=== PATIENT | male | born 1955 | race Caucasian/White ===

== ENCOUNTER 2019-07-07 14:50 | Emergency (ER) | payer OTHER ==
[2019-07-07 15:47] LABS: Protime INR 0.96
--- NOTE | 2019-07-07 15:48 | RAD REPORT ---
EXAM DESCRIPTION: RAD - Chest Single View - 07/07/2019 3:41 pm CLINICAL HISTORY: CHEST PAIN Chest pain. COMPARISON: No comparisons FINDINGS: Portable technique limits examination quality. The lungs are grossly clear. The heart is normal in size. No displaced fractures. IMPRESSION: No acute intrathoracic process suspected.
[2019-07-07 15:50] LABS: Absolute Lymphocytes (CBC) 1.4 K/uL (0.7-4.9); Basophils % 1.1 % (0-1.3); Hematocrit 44.9 % (39.6-49.0); Lymphocytes % 26.5 % (15.3-44.8); MPV 8.6 fL (7.6-11.3); RBC Red Blood Cell Count 5.31 M/uL (4.33-5.43)
[2019-07-07 15:57] LABS: ALT/SGPT 30 U/L (12-78); AST/SGOT 20 U/L (15-37); Albumin 3.7 g/dL (3.4-5.0); Alkaline Phosphatase 76 U/L (45-117); BUN Blood Urea Nitrogen 17 mg/dL (7-18); Bicarbonate 26 mmol/L (21-32); Bilirubin Direct 0.1 mg/dL (0-0.2); Bilirubin Total 0.4 mg/dL (0.2-1.0); Glucose Level 116 mg/dL (74-106); Lipase 140 U/L (73-393); Magnesium 2.3 mg/dL (1.8-2.4); NT PRO-BNP 14 pg/mL (<125); Potassium 4.6 mmol/L (3.5-5.1); Protein, Total 6.8 g/dL (6.4-8.2); Sodium Level 138 mmol/L (136-145); Troponin (Emerg Dept Use Only) < 0.02 ng/mL (0.0-0.045)
--- NOTE | 2019-07-07 17:10 | RAD REPORT ---
EXAM DESCRIPTION: US - Abdomen Exam Limited - 07/07/2019 5:01 pm CLINICAL HISTORY: chest pain COMPARISON: <Comparisons> FINDINGS: The gallbladder is contracted and therefore incompletely evaluated. No gross calculus seen . The common bile duct is normal measuring 4 mm. The liver demonstrates no findings of intrahepatic biliary dilatation. IMPRESSION: Contracted gallbladder.
--- NOTE | 2019-07-07 17:38 | EKG ---
Test Date: 2019-07-07 Test Time: 15:13:38 Principal Technical Writer: RV MEASUREMENT RESULTS: Intervals: Rate: 57 VT: 196 QRSD: 80 QT: 392 QTc: 381 [place]: P: 49 VT: 196 QRS: 72 T: 58 INTERPRETIVE STATEMENTS: Sinus bradycardia with sinus arrhythmia RSR' or QR pattern in V1 suggests right ventricular conduction delay Borderline ECG Compared to ECG 12/26/2006 04:31:31 No significant changes Electronically Signed On 07-07-19 17:37:50 CDT by Ricky Logan
--- NOTE | 2019-07-07 19:06 | ER ---
Nurse's Notes [facility] Name: Ramez Boothe Age: 63 yrs Sex: Male : 1955 Arrival Date: 07/07/2019 Time: 14:50 Bed 28 Private MD: Diagnosis: Angina pectoris, unspecified Presentation: 07/07 14:56 Presenting complaint: Patient states: Left sided chest pain that started last night and aj1 got worse today. Reports that he took some antiacid's with no relief. Reports SOB. Denies nausea, palpitations. Transition of care: patient was not received from another setting of care. Onset of symptoms was July 06, 2019. Risk Assessment: Do you want to hurt yourself or someone else? Patient reports no desire to harm self or others. Initial Sepsis Screen: Does the patient meet any 2 criteria? No. Patient's initial sepsis screen is negative. Does the patient have a suspected source of infection? No. Patient's initial sepsis screen is negative. Care prior to arrival: None. 14:56 Method Of Arrival: Ambulatory aj 14:56 Acuity: MARGARET 3 aj1 Triage Assessment: 14:59 General: Appears in no apparent distress. comfortable, Behavior is calm, cooperative, aj1 appropriate for age. Pain: Complains of pain in left lateral anterior chest Pain currently is 5 out of 10 on a pain scale. Neuro: Level of Consciousness is awake, alert, obeys commands. Cardiovascular: Patient's skin is warm and dry. Respiratory: Airway is patent Respiratory effort is even, unlabored, Respiratory pattern is regular, symmetrical. Historical: - Allergies: 14:59 No Known Allergies; aj1 - Home Meds: 14:59 Plavix Oral [Active]; Aspirin Oral [Active]; Lisinopril Oral [Active]; atorvastatin aj1 oral oral [Active]; Metoprolol Tartrate Oral [Active]; - PMHx: 14:59 Hyperlipidemia; Hypertension; Myocardial infarction; cardiac stent; aj1 - Immunization history:: Flu vaccine is up to date. - Social history:: Smoking status: Patient/guardian denies using tobacco. - Ebola Screening: : Patient denies travel to an Ebola-affected area in the 21 days before illness onset. Screenin:52 Abuse screen: Denies threats or abuse. Denies injuries from another. Nutritional rv screening: No deficits noted. Tuberculosis screening: No symptoms or risk factors identified. Fall Risk None identified. Assessment: 15:50 General: Appears in no apparent distress. uncomfortable, Behavior is calm, cooperative. rv Pain: Complains of pain in left lateral anterior chest Pain does not radiate. Pain began suddenly. Neuro: Level of Consciousness is awake, alert, obeys commands, Oriented to person, place, time, situation. Cardiovascular: Patient's skin is warm and dry. Rhythm is sinus rhythm. Respiratory: Airway is patent. GI: No signs and/or symptoms were reported involving the gastrointestinal system. : No signs and/or symptoms were reported regarding the genitourinary system. EENT: No signs and/or symptoms were reported regarding the EENT system. Derm: Skin is intact. 16:21 Reassessment: ultrasound done at the bedside. awaiting result. rv Vital Signs: 14:59 BP 130 / 74; Pulse 65; Resp 18; Temp 98.5; Pulse Ox 96% on R/A; Weight 88.45 kg (R); aj1 Height 5 ft. 4 in. (162.56 cm) (R); Pain 5/10; 15:45 BP 118 / 64; Pulse 49; Resp 13; Pulse Ox 96% on 2 lpm NC; rv 15:55 Pulse Ox 93% on R/A; rv 17:30 BP 108 / 61; Pulse 49; Resp 15; Pulse Ox 97% ; rv 18:00 BP 126 / 64; Pulse 55; Resp 16; Pulse Ox 98% on R/A; rv 19:17 BP 121 / 61; Pulse 54; Resp 14; Pulse Ox 98% on R/A; rv 14:59 Body Mass Index 33.47 (88.45 kg, 162.56 cm) aj1 15:55 patient is a mouth breather during sleep. rv ED Course: 14:50 Patient arrived in ED. as 14:57 Triage completed. aj1 14:59 Arm band placed on Patient placed in an exam room. aj1 15:05 Amparo Webster FNP-C is PHCP. snw 15:05 Sabino Chi MD is Attending Physician. snw 15:25 Arthur Watkins RN is Primary Nurse. rv 15:30 Inserted saline lock: 22 gauge in left forearm, using aseptic technique. Blood rv collected. 15:30 Initial lab(s) drawn, by me, sent to lab. Patient maintains SpO2 saturation greater rv than 95% on room air. 15:41 XRAY Chest (1 view) In Process Unspecified. EDMS 15:52 Patient has correct armband on for positive identification. Placed in gown. Bed in low rv position. Call light in reach. Adult w/ patient. groundwater monitoring technician on. Pulse ox on. NIBP on. 17:02 US Abdomen Limited In Process Unspecified. EDMS 17:07 Ultrasound completed. Patient tolerated well. Notified ELECTRON BEAM MACHINE WELDER SETTER/YONATAN stoddard. sg3 19:17 No provider procedures requiring assistance completed. IV discontinued, intact, rv bleeding controlled, No redness/swelling at site. Pressure dressing applied. Administered Medications: 17:00 Drug: NS 0.9% 500 ml Route: IV; Rate: bolus; Site: left forearm; rv 19:17 Follow up: IV Status: Completed infusion; IV Intake: 500ml rv Intake: 19:17 IV: 500ml; Total: 500ml. rv Outcome: 19:04 Discharge ordered by . snw 19:19 Discharged to home ambulatory. rv 19:19 Condition: improved 19:19 Discharge instructions given to patient, Instructed on discharge instructions, follow up and referral plans. Demonstrated understanding of instructions, follow-up care. 19:19 Patient left the ED. rv Signatures: Dispatcher [employer] EDAnita Dougherty, RN RN aj1 Amparo Webster, STATEMENT PROCESSOR-C STATEMENT PROCESSOR-Juan Miguelw Johnna Ames Sarah sg3 Arthur Watkisn RN RN rv Corrections: (The following items were deleted from the chart) 15:56 15:45 BP 118 / 64; Pulse 49bpm; Resp 13bpm; Pulse Ox 96% RA; rv rv
--- NOTE | 2019-07-07 19:07 | EDPHYS ---
Physician Documentation [facility] Name: Ramez Boothe Age: 63 yrs Sex: Male : 1955 Arrival Date: 07/07/2019 Time: 14:50 Bed 28 Private MD: ED Physician Sabino Chi HPI: 07/07 18:32 This 63 yrs old Male presents to ER via Ambulatory with complaints of Chest snw Pain. 18:32 The patient or guardian reports chest pain that is located primarily in the left snw lateral anterior chest and left breast. Onset: gradually, last night, and became persistent. The pain does not radiate. Associated signs and symptoms: The patient has no apparent associated signs or symptoms. The chest pain is described as a pressure. Duration: The patient or guardian reports a single episode. Modifying factors: The symptoms are alleviated by nothing. the symptoms are aggravated by nothing. Severity of pain: At its worst the pain was very mild mild. The patient has not experienced similar symptoms in the past. It is unknown whether or not the patient has recently seen a physician. Historical: - Allergies: 14:59 No Known Allergies; aj1 - Home Meds: 14:59 Plavix Oral [Active]; Aspirin Oral [Active]; Lisinopril Oral [Active]; atorvastatin aj1 oral oral [Active]; Metoprolol Tartrate Oral [Active]; - PMHx: 14:59 Hyperlipidemia; Hypertension; Myocardial infarction; cardiac stent; aj1 - Immunization history:: Flu vaccine is up to date. - Social history:: Smoking status: Patient/guardian denies using tobacco. - Ebola Screening: : Patient denies travel to an Ebola-affected area in the 21 days before illness onset. ROS: 18:30 Constitutional: Negative for fever, chills, and weight loss, Eyes: Negative for injury, snw pain, redness, and discharge, ENT: Negative for injury, pain, and discharge, Neck: Negative for injury, pain, and swelling, Respiratory: Negative for shortness of breath, cough, wheezing, and pleuritic chest pain, Abdomen/GI: Negative for abdominal pain, nausea, vomiting, diarrhea, and constipation, Back: Negative for injury and pain, : Negative for injury, bleeding, discharge, and swelling, MS/Extremity: Negative for injury and deformity, Skin: Negative for injury, rash, and discoloration, Neuro: Negative for headache, weakness, numbness, tingling, and seizure, Psych: Negative for depression, anxiety, suicide ideation, homicidal ideation, and hallucinations. 18:30 Cardiovascular: Positive for chest pain, of the left lateral anterior chest, Negative for edema, orthopnea, palpitations, paroxysmal nocturnal dyspnea, acute changes. Exam: 18:30 Constitutional: This is a well developed, well nourished patient who is awake, alert, snw and in no acute distress. Head/Face: Normocephalic, atraumatic. Eyes: Pupils equal round and reactive to light, extra-ocular motions intact. Lids and lashes normal. Conjunctiva and sclera are non-icteric and not injected. Cornea within normal limits. Periorbital areas with no swelling, redness, or edema. ENT: Nares patent. No nasal discharge, no septal abnormalities noted. Tympanic membranes are normal and external auditory canals are clear. Oropharynx with no redness, swelling, or masses, exudates, or evidence of obstruction, uvula midline. Mucous membranes moist. Neck: Trachea midline, no thyromegaly or masses palpated, and no cervical lymphadenopathy. Supple, full range of motion without nuchal rigidity, or vertebral point tenderness. No Meningismus. Cardiovascular: Regular rate and rhythm with a normal S1 and S2. No gallops, murmurs, or rubs. Normal PMI, no JVD. No pulse deficits. Respiratory: Lungs have equal breath sounds bilaterally, clear to auscultation and percussion. No rales, rhonchi or wheezes noted. No increased work of breathing, no retractions or nasal flaring. Abdomen/GI: Soft, non-tender, with normal bowel sounds. No distension or tympany. No guarding or rebound. No evidence of tenderness throughout. Back: No spinal tenderness. No costovertebral tenderness. Full range of motion. Skin: Warm, dry with normal turgor. Normal color with no rashes, no lesions, and no evidence of cellulitis. MS/ Extremity: Pulses equal, no cyanosis. Neurovascular intact. Full, normal range of motion. Neuro: Awake and alert, GCS 15, oriented to person, place, time, and situation. Cranial nerves II-XII grossly intact. Motor strength 5/5 in all extremities. Sensory grossly intact. Cerebellar exam normal. Normal gait. Psych: Awake, alert, with orientation to person, place and time. Behavior, mood, and affect are within normal limits. 18:30 Chest/axilla: Inspection: normal, Palpation: is normal, Axilla: are normal, Lymph nodes: lymphadenopathy is not appreciated. Vital Signs: 14:59 BP 130 / 74; Pulse 65; Resp 18; Temp 98.5; Pulse Ox 96% on R/A; Weight 88.45 kg (R); aj1 Height 5 ft. 4 in. (162.56 cm) (R); Pain 5/10; 15:45 BP 118 / 64; Pulse 49; Resp 13; Pulse Ox 96% on 2 lpm NC; rv 15:55 Pulse Ox 93% on R/A; rv 17:30 BP 108 / 61; Pulse 49; Resp 15; Pulse Ox 97% ; rv 18:00 BP 126 / 64; Pulse 55; Resp 16; Pulse Ox 98% on R/A; rv 19:17 BP 121 / 61; Pulse 54; Resp 14; Pulse Ox 98% on R/A; rv 14:59 Body Mass Index 33.47 (88.45 kg, 162.56 cm) aj1 15:55 patient is a mouth breather during sleep. rv MDM: 15:05 Patient medically screened. snw 22:50 The patient was not given aspirin in the Emergency Department. Patient reports taking snw aspirin within the past 24 hours. Data reviewed: vital signs, nurses notes. Data interpreted: Pulse oximetry: on room air is 98 %. Interpretation: normal. Counseling: I had a detailed discussion with the patient and/or guardian regarding: the historical points, exam findings, and any diagnostic results supporting the discharge/admit diagnosis, lab results, radiology results, the need for outpatient follow up, to return to the emergency department if symptoms worsen or persist or if there are any questions or concerns that arise at home. Response to treatment: the patient's symptoms have mildly improved after treatment. Special discussion: Based on the patient's history, exam, and Dx evaluation, there is no indication for emergent intervention or inpatient Tx. It is understood by the patient/guardian that if the Sx's persist or worsen they need to return immediately for re-evaluation. Based on the history and exam findings, there is no indication for further emergent testing or inpatient evaluation. I discussed with the patient/guardian the need to see the financial institution president for further evaluation of the symptoms. I discussed with the patient/guardian the need to see the primary care provider for further evaluation of the symptoms. 07/07 15:23 Order name: Basic Metabolic Panel; Complete Time: 16:40 snw 07/07 15:23 Order name: CBC with Diff; Complete Time: 16:40 snw 07/07 15:23 Order name: LFT's; Complete Time: 16:40 snw 07/07 15:23 Order name: Magnesium; Complete Time: 16:40 snw 07/07 15:23 Order name: NT PRO-BNP; Complete Time: 16:40 snw 07/07 15:23 Order name: PT-INR; Complete Time: 15:49 snw 07/07 15:23 Order name: Troponin (emerg Dept Use Only); Complete Time: 16:40 snw 07/07 15:23 Order name: XRAY Chest (1 view); Complete Time: 15:50 snw 07/07 15:23 Order name: EKG; Complete Time: 15:24 snw 07/07 15:23 Order name: Lipase; Complete Time: 16:40 snw 07/07 15:23 Order name: US Abdomen Limited; Complete Time: 17:14 snw 07/07 17:53 Order name: Troponin (emerg Dept Use Only); Complete Time: 19:02 snw 07/07 15:23 Order name: Cardiac monitoring; Complete Time: 15:26 snw 07/07 15:23 Order name: EKG - Nurse/Tech; Complete Time: 15:26 snw 07/07 15:23 Order name: IV Saline Lock; Complete Time: 15:26 snw 07/07 15:23 Order name: Labs collected and sent; Complete Time: 15:26 snw 07/07 15:23 Order name: O2 Per Protocol; Complete Time: 15:26 w 07/07 15:23 Order name: O2 Sat Monitoring; Complete Time: 15:26 snw Administered Medications: 17:00 Drug: NS 0.9% 500 ml Route: IV; Rate: bolus; Site: left forearm; rv 19:17 Follow up: IV Status: Completed infusion; IV Intake: 500ml rv Disposition: 07/08 07:10 Co-signature as Attending Physician, Sabino Chi MD. rn Disposition: 07/07/19 19:04 Discharged to Home. Impression: Angina pectoris, unspecified. - Condition is Stable. - Discharge Instructions: Angina Pectoris. - Work release form, Medication Reconciliation Form, Thank You Letter, Antibiotic Education, Prescription Opioid Use form. - Follow up: Private Physician; When: 1 - 2 days; Reason: Recheck today's complaints, Continuance of care, Re-evaluation by your physician. Follow up: Emergency Department; When: As needed; Reason: Worsening of condition. Signatures: Dispatcher [employer] EDMS Anita Carty RN RN aj1 Amparo Webster, MEDICAL TECHNOLOGIST-C MEDICAL TECHNOLOGIST-Csnw Sabino Chi MD MD rn Vicente, Ronaldo, RN RN rv Corrections: (The following items were deleted from the chart) 07/07 19:19 19:04 07/07/2019 19:04 Discharged to Home. Impression: Angina pectoris, unspecified. rv Condition is Stable. Forms are Medication Reconciliation Form, Thank You Letter, Antibiotic Education, Prescription Opioid Use. Follow up: Private Physician; When: 1 - 2 days; Reason: Recheck today's complaints, Continuance of care, Re-evaluation by your physician. Follow up: Emergency Department; When: As needed; Reason: Worsening of condition. snw
[2019-07-07 23:59] VITALS: TEMP 98.5
[2019-07-08 00:56] VITALS: O2SAT 98
[2019-07-08 00:57] VITALS: BP 121/61
== END 2019-07-07 19:19 | disposition home or self-care (01) ==
LOC: ER 14:50
DX: I20.9 Angina pectoris, unspecified (principal); I10 Essential (primary) hypertension; I25.2 Old myocardial infarction; E78.5 Hyperlipidemia, unspecified; Z79.01 Long term (current) use of anticoagulants; Z79.82 Long term (current) use of aspirin; Z95.818 Presence of other cardiac implants and grafts
CPT/HCPCS: 36415; 71045; 76705; 80048; 80076; 83690; 83735; 83880; 84484; 85025; 85610; 93005; 96360; 96361; 99285

== ENCOUNTER 2021-08-21 21:23 | Emergency (ER) | payer OTHER ==
--- NOTE | 2021-08-21 21:57 | ER ---
Nurse's Notes [facility] Name: Ramez Boothe Age: 65 yrs Sex: Male : 1955 Arrival Date: 08/21/2021 Time: 21:29 Bed 13 Private MD: Diagnosis: Pain in left forearm Presentation: 08/21 21:42 Chief complaint: Patient states: was lifting an air conditioner and hurt left arm. em Coronavirus screen: Vaccine status: Patient reports receiving the 2nd dose of the covid vaccine. Ebola Screen: Patient negative for fever greater than or equal to 101.5 degrees Fahrenheit, and additional compatible Ebola Virus Disease symptoms Patient denies exposure to infectious person. Patient denies travel to an Ebola-affected area in the 21 days before illness onset. No symptoms or risks identified at this time. Initial Sepsis Screen: Does the patient meet any 2 criteria? No. Patient's initial sepsis screen is negative. Does the patient have a suspected source of infection? No. Patient's initial sepsis screen is negative. Risk Assessment: Do you want to hurt yourself or someone else? Patient reports no desire to harm self or others. Onset of symptoms was August 21, 2021. 21:42 Method Of Arrival: Ambulatory em 21:42 Acuity: MARGARET 3 em Triage Assessment: 22:03 General: Appears in no apparent distress. Behavior is calm, cooperative. Pain: df1 Complains of pain in left arm Pain at worst was 10 out of 10 on a pain scale. Aggravated by increased activity. Historical: - Allergies: 21:45 No Known Allergies; em - Home Meds: 22:04 Aspirin Oral [Active]; atorvastatin Oral [Active]; lisinopril Oral [Active]; Metoprolol df1 Tartrate Oral [Active]; Plavix Oral [Active]; - PMHx: 21:45 cardiac stent; Hyperlipidemia; Hypertension; Myocardial infarction; em - PSHx: 22:04 None; df1 - Immunization history:: Adult Immunizations up to date. - Social history:: Smoking status: Patient denies any tobacco usage or history of. Screenin:03 Abuse screen: Denies threats or abuse. Nutritional screening: No deficits noted. df1 Tuberculosis screening: No symptoms or risk factors identified. Fall Risk None identified. Assessment: 22:26 General: Appears in no apparent distress. Behavior is calm, cooperative. Pain: df1 Complains of pain in anterior aspect of left shoulder and posterior aspect of left shoulder Aggravated by increased activity. Vital Signs: 21:42 BP 136 / 68; Pulse 72; Resp 18; Temp 98.4; Pulse Ox 97% on R/A; Weight 99.79 kg; Height em 5 ft. 4 in. (162.56 cm); 22:27 BP 140 / 65; Pulse 75; Resp 18; Pulse Ox 98% on R/A; Pain 8/10; df1 21:42 Body Mass Index 37.76 (99.79 kg, 162.56 cm) em ED Course: 21:29 Patient arrived in ED. cf2 21:44 Triage completed. em 21:45 Thuy Scherer FNP-C is [facility]. kb 21:45 Simón Jacobsen MD is Attending Physician. kb 21:45 Arm band placed on. em 21:54 Dontrell Hopkins, RN is Primary Nurse. fu 22:04 Patient has correct armband on for positive identification. Bed in low position. Call df1 light in reach. Side rails up X 1. 22:04 No provider procedures requiring assistance completed. Patient did not have IV access df1 during this emergency room visit. 22:26 Sling applied to left arm. df1 Administered Medications: No medications were administered Outcome: 21:56 Discharge ordered by . kb 22:05 Discharged to home ambulatory. df1 22:05 Condition: stable 22:06 Discharge instructions given to patient, Instructed on discharge instructions, follow df1 up and referral plans. medication usage, Demonstrated understanding of instructions, follow-up care, medications, Prescriptions given X 2. 22:28 Patient left the ED. df1 Signatures: Thuy Scherer FNP-C FNP-Ckb Munoz, Edgar RN RN Dontrell Hopkins, Swapnil Delacruz RN 2 Brina Garcia df1
--- NOTE | 2021-08-21 21:58 | EDPHYS ---
Physician Documentation [facility] Name: Ramez Boothe Age: 65 yrs Sex: Male : 1955 Arrival Date: 08/21/2021 Time: 21:29 Bed 13 Private MD: ED Physician Simón Jacobsen HPI: 08/21 21:53 This 65 yrs old Male presents to ER via Ambulatory with complaints of Arm kb Pain, LIMITED MOBILITY IN ARM, ARM CRAMPS. 21:53 The patient or guardian complains of pain, that is acute. The complaints affect the kb left forearm. Context: The problem was sustained at home, resulted from lifting or pulling. Onset: The symptoms/episode began/occurred today. Treatment prior to arrival includes: no previous treatment. Modifying factors: The symptoms are alleviated by nothing. the symptoms are aggravated by movement. Associated signs and symptoms: Pertinent positives: decreased range of motion, pain. Severity of symptoms: At their worst the symptoms were moderate, in the emergency department the symptoms are unchanged. The patient has not experienced similar symptoms in the past. The patient has not recently seen a physician. Pt states he was lifting something heavy today and felt some pain in left forearm. States only has pain when he tries to rotate arm. Full flexion and extension without pain. . Historical: - Allergies: 21:45 No Known Allergies; em - Home Meds: 22:04 Aspirin Oral [Active]; atorvastatin Oral [Active]; lisinopril Oral [Active]; Metoprolol df1 Tartrate Oral [Active]; Plavix Oral [Active]; - PMHx: 21:45 cardiac stent; Hyperlipidemia; Hypertension; Myocardial infarction; em - PSHx: 22:04 None; df1 - Immunization history:: Adult Immunizations up to date. - Social history:: Smoking status: Patient denies any tobacco usage or history of. ROS: 21:55 Constitutional: Negative for fever, chills, and weight loss. kb 21:55 MS/extremity: Positive for decreased range of motion, pain, of the left forearm. 21:55 All other systems are negative. Exam: 21:56 Constitutional: This is a well developed, well nourished patient who is awake, alert, kb and in no acute distress. Head/Face: Normocephalic, atraumatic. ENT: Moist Mucous membranes Respiratory: Respirations even and unlabored. No increased work of breathing, no retractions or nasal flaring. Skin: Warm, dry with normal turgor. Normal color. Neuro: Awake and alert, GCS 15, oriented to person, place, time, and situation. Moves all extremities. Normal gait. Psych: Awake, alert, with orientation to person, place and time. Behavior, mood, and affect are within normal limits. 21:56 Musculoskeletal/extremity: Extremities: grossly normal except: noted in the left forearm: decreased ROM, pain, ROM: limited active range of motion, in the left forearm, rotation only, full rom with extension and flexion., Circulation is intact in all extremities. Sensation intact. Vital Signs: 21:42 BP 136 / 68; Pulse 72; Resp 18; Temp 98.4; Pulse Ox 97% on R/A; Weight 99.79 kg; Height em 5 ft. 4 in. (162.56 cm); 22:27 BP 140 / 65; Pulse 75; Resp 18; Pulse Ox 98% on R/A; Pain 8/10; df1 21:42 Body Mass Index 37.76 (99.79 kg, 162.56 cm) em MDM: 21:45 Patient medically screened. kb 21:53 Data reviewed: vital signs, nurses notes. Data interpreted: Pulse oximetry: on room air kb is 97 %. Interpretation: normal. Counseling: I had a detailed discussion with the patient and/or guardian regarding: the historical points, exam findings, and any diagnostic results supporting the discharge/admit diagnosis, the need for outpatient follow up, a orthopedic surgeon, to return to the emergency department if symptoms worsen or persist or if there are any questions or concerns that arise at home. 08/21 21:57 Order name: Sling; Complete Time: 22:41 kb Administered Medications: No medications were administered Disposition: 08/22 07:35 Co-signature as Attending Physician, Simón Jacobsen MD. [email or web address] Disposition Summary: 08/21/21 21:56 Discharge Ordered Location: Home kb Condition: Stable kb Diagnosis - Pain in left forearm kb Followup: kb - With: Emergency Department - When: As needed - Reason: Worsening of condition Followup: kb - With: Private Physician - When: 2 - 3 days - Reason: Recheck today's complaints, Continuance of care, Re-evaluation by your physician Discharge Instructions: - Discharge Summary Sheet kb - Musculoskeletal Pain kb Forms: - Medication Reconciliation Form kb - Thank You Letter kb - Antibiotic Education kb - Prescription Opioid Use kb Prescriptions: - Cyclobenzaprine 10 mg Oral Tablet - take 1 tablet by ORAL route every 8 hours As needed; 21 tablet; Refills: 0, kb Product Selection Permitted - Diclofenac Sodium 75 mg Oral tablet,delayed release (DR/EC) - take 1 tablet by ORAL route 2 times per day As needed; 30 tablet; Refills: 0, kb Product Selection Permitted Signatures: Thuy Scherer FNP-C FNP-Michael Parker RN RN Simón Navarro MD MD [facility] Brina Garcia df1
[2021-08-21 22:34] VITALS: TEMP 98.4
[2021-08-21 22:35] VITALS: BP 140/65; O2SAT 98
== END 2021-08-21 22:28 | disposition home or self-care (01) ==
LOC: ER 21:23
DX: M79.632 Pain in left forearm (principal); X50.0XXA Overexertion from strenuous movement or load, initial encounter; Y93.89 Activity, other specified; Y92.9 Unspecified place or not applicable; I10 Essential (primary) hypertension; E78.00 Pure hypercholesterolemia, unspecified; I25.2 Old myocardial infarction
CPT/HCPCS: 99283

== ENCOUNTER 2022-06-02 07:45 | Day surgery (SDC) | payer OTHER ==
--- NOTE | 2022-06-01 13:11 | RAD REPORT ---
EXAM DESCRIPTION: Alexis Garcia (2 Views)06/01/2022 1:05 pm CLINICAL HISTORY: Preop for left hand surgery. Hypertension COMPARISON: 2019 FINDINGS: The lungs appear clear of acute infiltrate. The heart is normal size IMPRESSION: No acute abnormalities displayed
[2022-06-01 13:25] LABS: Specific Gravity 1.025 (1.005-1.030); Urine Bilirubin Negative (Negative); Urine Blood Negative (Negative); Urine Clarity Clear (Clear); Urine Color Yellow (Yellow); Urine Glucose Negative (Negative); Urine Protein Negative (Negative); Urine Urobilinogen 0.2 mg/dL (0.2-1.0)
[2022-06-01 13:26] LABS: Absolute Lymphocytes (CBC) 1.2 K/uL (0.7-4.9); Hematocrit 47.1 % (39.6-49.0); Lymphocytes % 17.2 % (15.3-44.8); MCV 89.4 fL (80-100); MPV 8.3 fL (7.6-11.3); RBC Red Blood Cell Count 5.27 M/uL (4.33-5.43)
[2022-06-01 13:32] LABS: SARS-CoV-2 Antigen Rapid Res Negative (Negative)
--- NOTE | 2022-06-02 07:31 | EKG ---
Test Date: 2022-06-01 Test Time: 12:45:45 [employer]ce Field Merchandiser: LIZZIE MEASUREMENT RESULTS: Intervals: Rate: 64 WA: 198 QRSD: 80 QT: 370 QTc: 381 [place]: P: 40 WA: 198 QRS: 31 T: 20 INTERPRETIVE STATEMENTS: Normal sinus rhythm Cannot rule out Anterior infarct, age undetermined Abnormal ECG Compared to ECG 07/07/2019 15:13:38 Myocardial infarct finding now present Sinus bradycardia no longer present Sinus arrhythmia no longer present Electronically Signed On 06-02-22 07:30:48 CDT by Anuel Escamilla
[2022-06-02] MEDS ORDERED: CEFAZOLIN SODIUM 1 GM/VIAL ONE (07:59)
[2022-06-02] MEDS ORDERED: Ringers Lactate 1,000 ML IV ONE (07:59)
[2022-06-02] MEDS ORDERED: NA CHLORIDE 0.9% 50 ML ONE (07:59)
[2022-06-02] MEDS ORDERED: propofoL 200 MG/20 ML VIAL IV ONE (08:44)
[2022-06-02] MEDS ORDERED: FENTANYL CITR 100 MCG/2 ML ONE (08:44)
[2022-06-02] MEDS ORDERED: MINERAL OIL, LITE 10 ML VIAL ONE (08:45)
[2022-06-02] MEDS ORDERED: dexAMETHasone 10 MG/ML VIAL ONE (08:47)
[2022-06-02] MEDS ORDERED: MIDAZOLAM HCL 2 MG/2 ML INJ ONE (08:47)
[2022-06-02] MEDS ORDERED: ONDANSETRON 4 MG/2 ML VIAL ONE (08:49)
[2022-06-02] MEDS ORDERED: KETOROLAC 30 MG/ML INJ ONE (08:49)
[2022-06-02] MEDS ORDERED: LIDOCAINE 1% MPF 5 ML VIAL ONE (08:49)
[2022-06-02] MEDS ORDERED: EPHEDRINE SULF 50 MG/ML VIAL ONE (09:40)
[2022-06-02] MEDS ORDERED: Mastisol Adhesive Liq ONE (09:56)
[2022-06-02 10:50] VITALS: BP 103/60; TEMP 97.4; O2SAT 96
--- NOTE | 2022-06-02 21:51 | HP ---
Date of Admission: 06/02/2022 History Of Present Illness: The patient is a 66-year-old white male who is right-hand dominant, who crushed his left hand approximately a month ago, had hematomas evacuated, has an open wound, needs sk in grafting. Social History: Does not smoke, does not drink. Past Surgical History: Multiple surgeries to back and shoulder, heart stent. Past Medical History: No medical problems. Medications: See list. Allergies: NO ALLERGIES. Physical Examination: He has an open wound, dorsum left hand over the index, middle, ring, metacarpal midshaft area approxi mately 6 cm long x 2 cm wide. Assessment: Open wound. Plan: Debridement and skin graft. SABRINA/CHARLENE Voice ID: [id number]
--- NOTE | 2022-06-06 11:27 | OP ---
Surgeon: Don Og MD Preoperative Diagnosis: Open wound, left hand. Postoperative Diagnosis: Open wound, left hand. Procedures Performed: Debridement of the skin and subcutaneous tissue, split-thickness skin graft, _ . Anesthesia: General. Description Of Procedure: After the satisfactory induction of general anesthesia, left hand and left thigh were prepped with Betadine scrub and Betadine paint. Dry sterile drapes were applied in usual manner. The defect was measured and was outlined on the anterior left thigh, harvested with skin gr aft with a dermatome Then, the hand was debrided with a scalpel, removing the s kin edges as needed. Wound was curetted and jet lavaged, irrigated with 1 L of Betadine solution. T he skin was laid in place and then sewn in place with 4-0 Prolene undersurface was irrigat ed with saline and then a splint was applied over Xeroform and dressed this with Xeroform over that and then 2-inch Lamar. The patient tolerated the procedure well . GH/MODL Voice ID: [id number] Report ID: [id number]
== END 2022-06-02 11:10 | disposition home or self-care (01) ==
LOC: OR 07:45
PROVIDERS: ATTEND Specialist
PROC: 0HRJX74 Replacement of Left Upper Leg Skin with Autologous Tissue Substitute, Partial Thickness, External Approach (ICD-10-PCS; 2022-06-02)
PROC: 0JDK0ZZ Extraction of Left Hand Subcutaneous Tissue and Fascia, Open Approach (ICD-10-PCS; principal; 2022-06-02 09:00)
DX: S61.402A Unspecified open wound of left hand, initial encounter (principal); Z20.822 Contact with and (suspected) exposure to COVID-19
CPT/HCPCS: 11042; 15120; 15100; 15004; 93005; 85025; 36415; 81003; 71046; 87811; J2250; J2405; J0690; J1100; J2704; J3010; J7120

== ENCOUNTER 2023-01-18 06:05 | Observation (INO) | payer OTHER ==
--- OUTSIDE RECORDS SUMMARY | 2023-01-18 06:09 | XMS REPORT | Continuity of Care Document ---
:1955 Author Organization [facility] t Address [address] [place] [address] Care Team Providers Name Role Phone Elisabet Guadalupe Primary Care Physician SEE GUADALUPE Attending Clinician Unavailable Jayjay Medrano Attending Clinician Unavailable Jon Woods DO Attending Clinician Doctor Unassigned, [place] Attending Clinician Unavailable RJ UZLUAGA Attending Clinician Unavailable Rj Zuluaga APN Attending Clinician AZUCENA VIVEROS Attending Clinician Unavailable DANIELLE BENAVIDES Attending Clinician Unavailable EWELINA TONG Attending Clinician Unavailable RJ ZULUAGA Admitting Clinician Unavailable EWELINA TONG Admitting Clinician Unavailable Payers Payer Name Policy Type Policy Number Effective Date Expiration Date S ource Problems Condition Condition Condition Status Onset Resolution Last Treating Co mments Source Name Details Category Date Date Treatment Clinician Date H/O heart H/O heart Disease Active Met [facility] artery artery 2-24 st stent stent 00:00: Hospita 00 l Essential Essential Disease Active Met [facility]odi hypertensi hypertensi 1-08 st on on 00:00: Hospita 00 l Other Other Disease Active [facility] chest pain 05-28 [facility] Chest pain Chest pain Disease [facility] Past heart Past heart Disease Active M ethodi attack attack 7 st 00:00: Hospita [address] Disease Active Methodi elevation elevation 7-16 st 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 Leg pain Cramp of Cramp of Disease Active Overview: Un kevan limb limb 4-12 Formattin ity of 00:00: g of this [place] note Medical might be Branch different from the original. Cramps Allergies, Adverse Reactions, Alerts Allergy Allergy Status Severity Reaction(s) Onset Inactive Treating Comm ents Source Name Type Date Date Clinician No Known DA Active [facility] 11[facility]27 Allergie 00:00: s 00 No Known DA Active [facility] 11-26 Allergie 00:00: s 00 No Known DA Active [facility] 1 Allergie 00:00: s 00 NO KNOWN Allergy [facility] Drug Active [facility] ALLERGIE Class ity of S [facility] Family History Family Member Diagnosis Comments Start Date Stop Date Source Natural sister Asthma [facility] sister Diabetes [facility] Natural father COPD [facility] Natural mother Cancer [facility] mother Diabetes [facility] Natural mother Heart disease [facility] Natural mother [facility]ar[facility] Stillbirths Social History Social Habit Start Date Stop Date Quantity Comments Source Cigarettes smoked 2022-12-26 2022-12-26 [facility] current (pack per 00:00:00 00:00:00 Hospita l day) - Reported Cigarette 2022-12-26 2022-12-26 [facility] pack-years 00:00:00 00:00:00 Hospital Tobacco use and 2022-12-26 2022-12-26 Smokeless [facility] exposure 00:00:00 00:00:00 tobacco non-user Hospital Alcohol intake 2022-12-26 2022-12-26 Lifetime [facility] 00:00:00 00:00:00 non-drinker Hospital (finding) Exposure to 2022-04-23 2022-05-03 Unable to assess Univers ity of SARS-CoV-2 (event) 00:00:00 15:14:00 [facility] History of tobacco 1998 2018-05-13 Current smoker [facility] use 00:00:00 00:00:00 Hospital Sex Ass[birth year] At [birth year] [facility] 00:00:00 00:00:00 Hospital Smoking Status Start Date Stop Date Source Ex-smoker 2022-12-26 00:00:00 2022-12-26 [facility] tobacco [facility] Medications Ordered Filled Start Stop Current Ordering Indication Dosage Frequency Signature Comments Components Source Medication Medication Date Date Medication? Clinician (SIG) Name Name tadalafiL Yes 5mg QD Take 1 Method i (CIALIS) 5 2-27 tablet (5 st MG tablet 09:57: mg total) Hos ramila 23 by mouth l daily. dexlansopra Yes 60mg QD Take 1 Meth maria g zole 2-[address] (DEXILANT) 09:57: (60 mg Hospi ta 60 mg 23 total) by l capsule mouth daily. aspirin 81 0 Yes 81mg QD Take 81 mg M ethodi mg capsule 2-[address] 09:57: daily. Hospita 23 l clopidogreL 0 Yes 75mg QD Take 1 Meth maria g (PLAVIX) 75 2-27 tablet (75 st mg tablet 09:57: mg total) Hos ramila 23 by mouth l daily. atorvastati Yes 80mg QD Take 1 Meth maria g n (LIPITOR) 2-27 tablet (80 st 80 MG 09:57: mg total) Hospita tablet 23 by mouth l daily. famotidine Yes 40mg QD Take 1 Metho di (PEPCID) 40 2-14 tablet (40 st MG tablet 00:00: mg total) Hos ramila 00 by mouth l daily. lisinopriL Yes 10mg QD Take 1 Metho di (PRINIVIL) 1-23 tablet (10 st 10 mg 00:00: mg total) Hospita tablet 00 by mouth l daily. metoprolol Yes 50mg Q.5D Take 1 Metho di tartrate 1-19 tablet (50 st (LOPRESSOR) 00:00: mg total) H ospita 50 mg 00 by mouth 2 l tablet (two) times a day. cefdinir Yes 300mg 300 mg, Unive rs (OMNICEF) 7-06 Oral, ity of capsule 300 01:00: Q12H, [place] mg 00 First dose Medical on Mon05/03/22 at 2000, Until Discontinu ed, STEPHEN
Re ason for Anti-Infec tive: Empiric Therapy for Suspected Infection< br>Empiric Therapy Site: Skin / Soft tissue
Duration of therapy: 72 hours HYDROcodone 2021- No 1{tbl} 1 tablet, Univers -acetaminop 05-03 Oral, ity of hen (NORCO 20:32: 20:36 ONCE, 1 [place] 5) 5-325 mg 00 :00 dose, On Medi josselin tablet 1 Mon05/03/22 Branc h tablet at 1545, STEPHEN NaCl 0.9% 2021- No 1000mL at 999 Uni vers (NS) bolus 05-03 mL/hr, ity of infusion 20:32: 22:24 1,000 mL, [place] as 1,000 mL 00 :00 IV Medical Piggyback, Branch ONCE, 1 dose, On Mon05/03/22 at 1545, STAT ondansetron 2021- No 4mg 4 mg, Slow Univers (ZOFRAN 05-03 IV Push, ity of (PF)) 20:32: 20:36 ONCE, 1 [place] injection 4 00 :00 dose, On Medi josselin mg Mon05/03/22 Branch at 1545, STEPHEN acetaminoph Yes 4647 1{tbl} Take 1 Un kevan en-codeine 7-05 tablet by ity of 300-30 mg 00:00: mouth [place] tablet 00 every 6 Medical (six) Branch hours as needed for Pain (scale 4-6). Indication s: acute pain acetaminoph Yes 4647 1{tbl} Take 1 Un kevan en-codeine 7-05 tablet by ity of 300-30 mg 00:00: mouth [place] tablet 00 every 6 Medical (six) Branch hours as needed for Pain (scale 4-6). Indication s: acute pain acetaminoph Yes 4647 1{tbl} Take 1 Un kevan en-codeine 7-05 tablet by ity of 300-30 mg 00:00: mouth [place] tablet 00 every 6 Medical (six) Branch hours as needed for Pain (scale 4-6). Indication s: acute pain cefdinir 2021- No [id number] 300mg Take 1 Univers 300 mg 7-05 07-16 capsule by ity of capsule 00:00: 04:59 mouth [place] 00 :00 every 12 Medical (twelve) Branch hours for 10 days. testosteron Yes 150mg Q7D Inject Met hodi e cypionate 1-[address] (DEPOTESTOT 00:00: (150 mg Hos ramila ERONE 00 total) l CYPIONATE) into the 200 mg/mL shoulder, injection thigh, or buttocks once a week. lisinopril Yes 10mg QD Take [address] (PRINIVIL,Z 7-30 by mouth Luke s ESTRIL) 20 15:26: daily . Medi josselin MG tablet 39 Center lisinopril Yes 10mg QD Take [address] (PRINIVIL,Z 7-30 by mouth Luke s ESTRIL) 20 15:26: daily . Medi jsoselin MG tablet 39 Center lisinopril Yes 10mg QD Take [address] (PRINIVIL,Z 7-30 by mouth Luke s ESTRIL) 20 15:26: daily . Medi josselin MG tablet 39 Center PEPCID 20 Yes once a day Un kevan MG ORAL TAB 4-12 ity of 20:47: [place] [address] Medical Branch CHANTIX 1 Yes twice a Unive rs MG ORAL TAB 4-12 day ity of 20:47: [address] PEPCID 20 Yes once a day Un kevan MG ORAL TAB 4-12 ity of 20:47: [address] CHANTIX 1 Yes twice a Unive rs MG ORAL TAB 4-12 day ity of 20:47: [address] PEPCID 20 Yes once a day Un kevan MG ORAL TAB 4-12 ity of 20:47: [address] CHANTIX 1 Yes twice a Unive rs MG ORAL TAB 4-12 day ity of 20:47: [address] HYDROCODONE Yes 1-2 Tab Uni vers -ACETAMINOP 2-23 Oral ity of HEN 5-325 00:00: Q4HPRN [place] MG ORAL TAB [facility] DOCUSATE Yes 1 Cap Oral Uni vers SODIUM 100 2-23 BID ity of MG ORAL CAP 00:00: [address] HYDROCODONE Yes 1-2 Tab Uni vers -ACETAMINOP 2-23 Oral ity of HEN 5-325 00:00: Q4HPRN [place] MG ORAL TAB [facility] DOCUSATE Yes 1 Cap Oral Uni vers SODIUM 100 2-23 BID ity of MG ORAL CAP 00:00: [address] HYDROCODONE Yes 1-2 Tab Uni vers -ACETAMINOP 2-23 Oral ity of HEN 5-325 00:00: Q4HPRN [place] MG ORAL TAB 00 [facility] DOCUSATE Yes 1 Cap Oral Uni vers SODIUM 100 2-23 BID ity of MG ORAL CAP 00:00: [address] Immunizations Ordered Filled Immunization Date Status Comments [facility] e Immunization Name Name Influenza, 2022-09-29 Completed [facility] Unspecified 00:00:00 [facility] Td 2022-05-03 Completed University 00:00:00 [facility] Td 2022-05-03 Completed University 00:00:00 [facility] Td 2022-05-03 Completed [facility] 00:00:00 [facility] Td, Unspecified 2022-05-03 Completed [facility] 00:00:00 [facility] PFIZER COVID-19 2021-09-29 Completed [facility] MRNA VACCINATION 00:00:00 [facility] SARS-COV-2 COVID-19 2021-01-02 Completed Unive rsity of MODERNA VACCINE 00:00:00 [facility] ical Branch SARS-COV-2 COVID-19 2021-01-02 Completed Unive rsity of MODERNA VACCINE 00:00:00 [facility] ical Branch SARS-COV-2 COVID-19 2021-01-02 Completed Unive rsity of MODERNA 12+ YRS 00:00:00 [facility] ica VACCINE Branch MODERNA COVID-19 2021-01-02 Completed Methodis t MRNA VACCINATION 00:00:00 [facility] SARS-COV-2 COVID-19 2020-12-05 Completed Unive rsity of MODERNA VACCINE 00:00:00 [facility] SARS-COV-2 COVID-19 2020-12-05 Completed Unive rsity of MODERNA VACCINE 00:00:00 [facility] SARS-COV-2 COVID-19 2020-12-05 Completed Unive rsity of MODERNA 12+ YRS 00:00:00 [facility]-19 2020-12-05 Completed Methodis t MRNA VACCINATION 00:00:00 [facility] Pneumococcal 2018-05-[address] [facility] Conjugate (Prevnar) 00:00:00 [facility] Pneumococcal 2018-05-[address] [facility] Conjugate (Prevnar) 00:00:00 [facility] Pneumococcal 2018-05-[address] [facility] Conjugate (Prevnar) 00:00:00 [facility] Pneumococcal 2018-05-15 Completed [facility] Vital Signs Vital Name Observation Time Observation Value Comments Source Systolic blood 2022-05-04 00:00:00 148 mm[Hg] Univer sity of pressure [facility] Diastolic blood 2022-05-04 00:00:00 68 mm[Hg] Unive rsity of pressure [facility] Heart rate 2022-05-04 00:00:00 59 /min Universi ty [facility] Respiratory rate 2022-05-04 00:00:00 20 /[facility] saturation in 2022-05-04 00:00:00 97 /min [facility] Arterial blood by [facility] Pulse oximetry Branch Body temperature 2022-05-03 20:20:00 36.11 Nallely [facility] Body height 2022-05-03 20:17:00 162.6 cm [facility] Body weight 2022-05-03 20:17:00 90.719 kg [facility] BMI 2022-05-03 20:17:00 34.33 kg/m2 [facility] Systolic blood 2022-12-26 16:00:00 122 mm[Hg] Method t [facility] pressure Diastolic blood 2022-12-26 16:00:00 76 mm[Hg] [facility] pressure Heart rate 2022-12-26 16:00:00 51 /min [facility] Body temperature 2022-12-26 16:00:00 36.72 Nallely [facility] Body height 2022-12-26 16:00:00 162.6 cm [facility] Body weight 2022-12-26 16:00:00 101.334 kg [facility] BMI 2022-12-26 16:00:00 38.35 kg/m2 [facility] Oxygen saturation in 2022-12-26 16:00:00 98 /min [facility] Arterial blood by Pulse oximetry 02 Sat by Pulse 2021-01-15 14:33:32 98 /min Oximetry Body Mass Index 2021-01-15 14:33:32 94201.6 Height 2021-01-15 14:33:32 1\S\0.39 Pulse Rate 2021-01-15 14:33:32 64 /min Respiratory Rate 2021-01-15 14:33:32 18 /min Weight 2021-01-15 14:33:32 1000\S\35.274 02 Sat by Pulse 2020-12-04 11:28:50 98 /min Oximetry Body Mass Index 2020-12-04 11:28:50 72643.6 Height 2020-12-04 11:28:50 1\S\0.39 Pulse Rate 2020-12-04 11:28:50 64 /min Respiratory Rate 2020-12-04 11:28:50 18 /min Weight 2020-12-04 11:28:50 1000\S\35.274 02 Sat by Pulse 2020-11-28 00:09:44 98 /min Oximetry Body Mass Index 2020-11-28 00:09:44 63253.6 Height 2020-11-28 00:09:44 1\S\0.39 Pulse Rate 2020-11-28 00:09:44 64 /min Respiratory Rate 2020-11-28 00:09:44 18 /min Weight 2020-11-28 00:09:44 1000\S\35.274 Body Mass Index 2020-11-27 09:43:37 42570.6 Height 2020-11-27 09:43:37 1\S\0.39 Weight 2020-11-27 09:43:37 1000\S\35.274 Body Mass Index 2020-11-27 09:43:06 59630.6 Height 2020-11-27 09:43:06 1\S\0.39 Weight 2020-11-27 09:43:06 1000\S\35.274 Body Mass Index 2020-11-27 07:16:02 45018.6 [facility] 2020-11-27 07:16:02 1\S\0.39 Weight 2020-11-27 07:16:02 1000\S\35.274 Body Mass Index 2020-11-27 06:43:44 59584.6 Height 2020-11-27 06:43:44 1\S\0.39 Weight 2020-11-27 06:43:44 1000\S\35.274 Body Mass Index 2020-11-27 06:35:04 49859.6 [facility] 2020-11-27 06:35:04 1\S\0.39 Weight 2020-11-27 06:35:04 1000\S\35.274 Body Mass Index 2020-11-26 16:41:27 44118.6 Height 2020-11-26 16:41:27 1\S\0.39 Weight 2020-11-26 16:41:27 1000\S\35.274 Body Mass Index 2020-11-26 16:40:57 90127.6 Height 2020-11-26 16:40:57 1\S\0.39 Weight 2020-11-26 16:40:57 1000\S\35.274 Body Mass Index 2020-11-26 14:05:57 50680.6 Height 2020-11-26 14:05:57 1\S\0.39 Weight 2020-11-26 14:05:57 1000\S\35.274 WEIGHT 2020-11-26 14:05:00 1 kg HEIGHT 2020-11-26 14:05:00 1 cm Procedures Procedure Date / Time Performing Clinician Source Performed CBC WITH PLATELET AND 2022-12-26 16:57:00 [facility] DIFFERENTIAL COMPREHENSIVE METABOLIC 2022-12-26 16:57:00 [facility] Jon [facility] PANEL URINALYSIS, AUTOMATED 2022-12-26 16:57:00 [facility] WITH MICROSCOPY HEMOGLOBIN A1C 2022-12-26 16:57[facility]00 [facility] LIPID PANEL 2022-12-26 16:57:[address] [facility] ospital THYROID STIMULATING 2022-12-26 16:57:00 [facility] HORMONE VITAMIN D 25 HYDROXY 2022-12-26 16:57:00 [facility] Jon [facility] LEVEL HEPATITIS C ANTIBODY 2022-12-26 16:57:00 [facility] TESTOSTERONE LEVEL, FREE 2022-12-26 16:57:00 [facility] AND TOTAL, MALE PSA, TOTAL AND FREE 2022-12-26 16:57:00 [facility] ESTROGENS, FRACTIONATED 2022-12-26 16:57:00 [facility] BY TMS ESTIMATED GFR 2022-12-26 16:57:00 [facility] ospital AUTHORIZATION FOR 2022-08-16 05:01:00 Doctor Unassigned, No Univ ersity [facility] RELEASE OF PHI Name Medical Branch AUTHORIZATION FOR 2022-05-30 05:01:00 Doctor Unassigned, No Univ ersity [facility] RELEASE OF [facility] Name Medical Branch ED LACERATION REPAIR 2022-05-03 23:46:50 Rj Zuluaga of [facility] ED LACERATION REPAIR 2022-05-03 23:45:16 Zuluaga, Rj L [facility] XR HAND 3+ VW LEFT 2022-05-03 21:54:00 Rj Zuluaga [facility] Plan of Care Planned Activity Planned Date Details Comments Source Future Scheduled 2023-01-16 Screening for [facility] Test 06:41:10 malignant neoplasm of lung (procedure) [code = 677667038] Future Scheduled 2023-01-16 [facility] 06:[facility]:10 of 2) [code = SHINGLES VACCINES (1 of 2)] Future Scheduled 2023-01-16 65+ PNEUMOCOCCAL [facility] Test 06:41:10 VACCINE (2 - PPSV23 if available, else PCV20) [code = 65+ PNEUMOCOCCAL VACCINE (2 - PPSV23 if available, else PCV20)] Future Scheduled 2023-01-16 COLONOSCOPY SCREENING [facility] Test 06:41:10 [code = COLONOSCOPY SCREENING] Encounters Start End Encounter Admission Attending Care Care Encounter Source Date/Time Date/Time Type Type Clinicians Facility Department ID 2021-11-24 Outpatient GUADALUPE [facility] [id number] Common 14:26:10 CUI LATHA [id number] [facility] 2021-11-24 Outpatient GUADALUPE, [facility] [id number] 14:16:08 SEE AZUL [id number] [facility] 2020-11-27 Inpatient Elective Marcela, [facility] [id number] [facility] 14:30:00 Jayjay Gacres 2022-12-26 2022-12-26 Lab Jon Woods 1.2.840.1 [id number] Methodi 11:00:00 11:05:[address] 3.430.2.7 Hospit a .3.179321 l .8 2022-12-26 2022-12-26 Office Jon Woods 1.2.840.1 [id number] Methodi 09:40:00 10:54:30 Visit Majid 34351.1.[address] 3.430.2.7 Hospit a .3.081025 l .8 2022-12-26 2022-12-26 Outpatient JON WOODS [facility] [id number] [place] 00:00:00 00:00:[address] 2022-12-26 2022-12-26 Outpatient JON WOODS [facility] [id number] [place] 00:00:00 00:00:[address] 2022-12-26 2022-12-26 Travel 1.2.840.1 [id number] Methodi 00:00:00 00:00:[address] 3.430.2.7 0.2.7.3.698 Ho spita .3.446066 084.8 l .8 2022-08-16 2022-08-16 Orders Doctor CARLOZ 1.2.840.114 [id number] Univers 00:00:00 00:00:00 Only Unassigned, MORENA 350.1.13.10 ity of [place] [facility] 4.2.7.2.686 [place] as [id number] [address] 2022-05-30 2022-05-30 Orders Doctor CARLOZ 1.2.840.[id number] [facility] 00:00:00 00:00:00 Only Unassigned, MORENA 350.1.13.10 ity of [place] [facility] 4.2.7.2.686 [place] as [id number] [address] 2022-05-03 2022-05-03 Emergency [id number] Univers 15:22:00 19:57:00 RJ ity of [facility] 2022-05-03 2022-05-03 Emergency [facility] 1.2.694.037 [id number] Univers 15:22:00 19:57:00 Rj GIRON 350.1.13.10 ity of [place] 4.2.7.2.686 [place] [facility] [id number] [place] [id number] Branch 2021-01-02 2021-01-02 Outpatient [facility] [id number] Univers 12:30:00 12:30:00 ity of [facility] 2020-12-05 2020-12-05 Outpatient [facility] [id number] Univers 12:20:00 12:20:00 [facility] 2020-08-07 2020-08-07 [facility] [id number] Univers 13:00:00 13:00:00 [facility] 2020-08-03 2020-08-03 [facility] [id number] Univers 15:30:00 15:30:00 [facility] 2020-07-20 2020-07-20 Out[facility] [id number] Univers 13:30:00 13:30:00 [facility] 2020-07-16 2020-07-16 Outpatient [facility] [id number] Univers 16:15:00 16:15:00 [facility] 2020-07-02 2020-07-02 Outpatient [facility] [id number] Univers 13:15:00 13:15:00 [facility] Results Test Description Test Time Test Comments Results Result Comments Source BASIC METABOLIC PANEL 2018-05-28 05:28:00 Test Item Value Reference Range Interpretation Comme nts SODIUM (BEAKER) (test code 129 meq/L 136-145 L = 381) POTASSIUM (BEAKER) (test 4.1 meq/L 3.5-5.1 code = 379) CHLORIDE (BEAKER) (test 103 meq/L 98-107 code = 382) CO2 (BEAKER) (test code = 22 meq/L 22-29 355) BLOOD UREA NITROGEN 20 mg/dL 7-21 (BEAKER) (test code = 354) CREATININE (BEAKER) (test 1.34 mg/dL 0.57-1.25 H code = 358) GLUCOSE RANDOM (BEAKER) 110 mg/dL 70-105 H (test code = 652) CALCIUM (BEAKER) (test code 9.0 mg/dL 8.4-10.2 = 697) EGFR (BEAKER) (test code = 54 mL/min/1.73 sq m ESTIMATED GFR IS NOT 1092) ACCURATE CRE ATININE CLEARANCE IN IN EDICTING GLOMERULAR FILT RATION RATE. ESTIMATED GFR IS NOT APPLICABLE FOR DIALYSIS PATIENTS. TROPONIN [id number] 05:14:00 Test Item Value Reference Range Interpretation Comments TROPONIN I (BEAKER) (test code = 0.06 ng/mL 0.00-0.03 H 397) Troponin I (TnI) levels must be interpreted in the context of the presenting symptoms and the clinical findings. Elevated TnI levels indicate myocardial damage, but are not specific for ischemic heart disease. Elevated TnI levels are seen in patients with other cardiac conditions (including myocarditis and congestive heart failure), and slight TnI elevations occur in patients with other conditions, including sepsis, renal failure, acidosis, acute neurological disease, and persistent tachyarrhythmia.CBC (HEMOGRAM ONLY)2018-05-28 04:48:00 Test Item Value Reference Range Interpretation Comments WHITE BLOOD CELL COUNT (BEAKER) 7.0 K/ L 3.5-10.5 (test code = 775) RED BLOOD CELL COUNT (BEAKER) 5.53 M/ L 4.63-6.08 (test code = 761) HEMOGLOBIN (BEAKER) (test code = 14.5 GM/DL 13.7-17.5 410) HEMATOCRIT (BEAKER) (test code = 45.4 % 40.1-51.0 411) MEAN CORPUSCULAR VOLUME (BEAKER) 82.1 fL 79.0-92.2 (test code = 753) MEAN CORPUSCULAR HEMOGLOBIN 26.2 pg 25.7-32.2 (BEAKER) (test code = 751) MEAN CORPUSCULAR HEMOGLOBIN CONC 31.9 GM/DL 32.3-36.5 L (BEAKER) (test code = 752) RED CELL DISTRIBUTION WIDTH 15.9 % 11.6-14.4 H (BEAKER) (test code = 412) PLATELET COUNT (BEAKER) (test 260 K/CU MM 150-450 code = 756) MEAN PLATELET VOLUME (BEAKER) 10.0 fL 9.4-12.4 (test code = 754) NUCLEATED RED BLOOD CELLS 0 /100 WBC 0-0 (BEAKER) (test code = 413) CBC W/PLT COUNT & AUTO [id number] 04:48:00 Test Item Value Reference Range Interpretation Comments WHITE BLOOD CELL COUNT (BEAKER) 7.0 K/ L 3.5-10.5 (test code = 775) RED BLOOD CELL COUNT (BEAKER) 5.53 M/ L 4.63-6.08 (test code = 761) HEMOGLOBIN (BEAKER) (test code = 14.5 GM/DL 13.7-17.5 410) HEMATOCRIT (BEAKER) (test code = 45.4 % 40.1-51.0 411) MEAN CORPUSCULAR VOLUME (BEAKER) 82.1 fL 79.0-92.2 (test code = 753) MEAN CORPUSCULAR HEMOGLOBIN 26.2 pg 25.7-32.2 (BEAKER) (test code = 751) MEAN CORPUSCULAR HEMOGLOBIN CONC 31.9 GM/DL 32.3-36.5 L (BEAKER) (test code = 752) RED CELL DISTRIBUTION WIDTH 15.9 % 11.6-14.4 H (BEAKER) (test code = 412) PLATELET COUNT (BEAKER) (test 260 K/CU MM 150-450 code = 756) MEAN PLATELET VOLUME (BEAKER) 10.0 fL 9.4-12.4 (test code = 754) NUCLEATED RED BLOOD CELLS 0 /100 WBC 0-0 (BEAKER) (test code = 413) NEUTROPHILS RELATIVE PERCENT 59 % (BEAKER) (test code = 429) LYMPHOCYTES RELATIVE PERCENT 25 % (BEAKER) (test code = 430) MONOCYTES RELATIVE PERCENT 11 % (BEAKER) (test code = 431) EOSINOPHILS RELATIVE PERCENT 3 % (BEAKER) (test code = 432) BASOPHILS RELATIVE PERCENT 1 % (BEAKER) (test code = 437) NEUTROPHILS ABSOLUTE COUNT 4.15 K/ L 1.78-5.38 (BEAKER) (test code = 670) LYMPHOCYTES ABSOLUTE COUNT 1.71 K/ L 1.32-3.57 (BEAKER) (test code = 414) MONOCYTES ABSOLUTE COUNT (BEAKER) 0.79 K/ L 0.30-0.82 (test code = 415) EOSINOPHILS ABSOLUTE COUNT 0.23 K/ L 0.04-0.54 (BEAKER) (test code = 416) BASOPHILS ABSOLUTE COUNT (BEAKER) 0.08 K/ L 0.01-0.08 (test code = 417) IMMATURE GRANULOCYTES-RELATIVE 0 % 0-1 PERCENT (BEAKER) (test code = 2801) [facility] [id number] 09:59:00 Test Item Value Reference Range Interpretation Comments TROPONIN I (BEAKER) (test code = 0.05 ng/mL 0.00-0.03 H 397) Troponin I (TnI) levels must be interpreted in the context of the presenting symptoms and the clinical findings. Elevated TnI levels indicate myocardial damage, but are not specific for ischemic heart disease. Elevated TnI levels are seen in patients with other cardiac conditions (including myocarditis and congestive heart failure), and slight TnI elevations occur in patients with other conditions, including sepsis, renal failure, acidosis, acute neurological disease, and persistent tachyarrhythmia.[id number] 09:34:00 Test Item Value Reference Range Interpretation Comments PARTIAL THROMBOPLASTIN TIME 62.0 seconds 22.5-36.0 H (BEAKER) (test code = 760) TROPONIN [id number] 03:14:00 Test Item Value Reference Range Interpretation Comments TROPONIN I (BEAKER) (test code = 0.07 ng/mL 0.00-0.03 H 397) Troponin I (TnI) levels must be interpreted in the context of the presenting symptoms and the clinical findings. Elevated TnI levels indicate myocardial damage, but are not specific for ischemic heart disease. Elevated TnI levels are seen in patients with other cardiac conditions (including myocarditis and congestive heart failure), and slight TnI elevations occur in patients with other conditions, including sepsis, renal failure, acidosis, acute neurological disease, and persistent tachyarrhythmia.[id number] 03:06:00 Test Item Value Reference Range Interpretation Comments MAGNESIUM (BEAKER) (test code = 2.2 mg/dL 1.6-2.6 627) BASIC METABOLIC [id number] 03:06:00 Test Item Value Reference Range Interpretation Comments SODIUM (BEAKER) 137 meq/L 136-145 (test code = 381) POTASSIUM (BEAKER) 4.4 meq/L 3.5-5.1 (test code = 379) CHLORIDE (BEAKER) 107 meq/L 98-107 (test code = 382) CO2 (BEAKER) (test 20 meq/L 22-29 L code = 355) BLOOD UREA NITROGEN 19 mg/dL 7-21 (BEAKER) (test code = 354) CREATININE (BEAKER) 1.34 mg/dL 0.57-1.25 H (test code = 358) GLUCOSE RANDOM 95 mg/dL 70-105 (BEAKER) (test code = 652) CALCIUM (BEAKER) 9.0 mg/dL 8.4-10.2 (test code = 697) EGFR (BEAKER) (test 54 mL/min/1.73 ESTIMA PADMA GFR IS code = 1092) sq m NOT ACCURATE CREATININE CLEARANCE IN PREDICTING GLOMERULAR FILTRATION RATE . ESTIMATED GFR I S NOT APPLICABLE FOR DIALYSIS PATIEN TS. [id number] 02:55:00 Test Item Value Reference Range Interpretation Comments PROTIME (BEAKER) (test code = 14.5 seconds 11.7-14.7 759) INR (BEAKER) (test code = 370) 1.1 <=5.9 PARTIAL THROMBOPLASTIN TIME 37.2 seconds 22.5-36.0 H (BEAKER) (test code = 760) RECOMMENDED COUMADIN/WARFARIN INR THERAPY RANGESSTANDARD DOSE: 2.0 - 3.0 Includes: PROPHYLAXIS for venous thrombosis, systemic embolization; TREATMENT for venous thrombosis and/or pulmonary embolus.HIGH RISK: Target INR is 2.5-3.5 for patients with mechanical heart valves.PROTHROMBIN [id number] 02:54:00 Test Item Value Reference Range Interpretation Comments PROTIME (BEAKER) (test code = 14.5 seconds 11.7-14.7 759) INR (BEAKER) (test code = 370) 1.1 <=5.9 RECOMMENDED COUMADIN/WARFARIN INR THERAPY RANGESSTANDARD DOSE: 2.0 - 3.0 Includes: PROPHYLAXIS for venous thrombosis, systemic embolization; TREATMENT for venous thrombosis and/or pulmonary embolus.HIGH RISK: Target INR is 2.5-3.5 for patients with mechanical heart valves.CBC W/PLT COUNT & AUTO [id number] 02:38:00 Test Item Value Reference Range Interpretation Comments WHITE BLOOD CELL COUNT (BEAKER) 7.2 K/ L 3.5-10.5 (test code = 775) RED BLOOD CELL COUNT (BEAKER) 5.34 M/ L 4.63-6.08 (test code = 761) HEMOGLOBIN (BEAKER) (test code = 13.8 GM/DL 13.7-17.5 410) HEMATOCRIT (BEAKER) (test code = 44.0 % 40.1-51.0 411) MEAN CORPUSCULAR VOLUME (BEAKER) 82.4 fL 79.0-92.2 (test code = 753) MEAN CORPUSCULAR HEMOGLOBIN 25.8 pg 25.7-32.2 (BEAKER) (test code = 751) MEAN CORPUSCULAR HEMOGLOBIN CONC 31.4 GM/DL 32.3-36.5 L (BEAKER) (test code = 752) RED CELL DISTRIBUTION WIDTH 16.1 % 11.6-14.4 H (BEAKER) (test code = 412) PLATELET COUNT (BEAKER) (test 275 K/CU MM 150-450 code = 756) MEAN PLATELET VOLUME (BEAKER) 9.8 fL 9.4-12.4 (test code = 754) NUCLEATED RED BLOOD CELLS 0 /100 WBC 0-0 (BEAKER) (test code = 413) NEUTROPHILS RELATIVE PERCENT 61 % (BEAKER) (test code = 429) LYMPHOCYTES RELATIVE PERCENT 26 % (BEAKER) (test code = 430) MONOCYTES RELATIVE PERCENT 9 % (BEAKER) (test code = 431) EOSINOPHILS RELATIVE PERCENT 3 % (BEAKER) (test code = 432) BASOPHILS RELATIVE PERCENT 1 % (BEAKER) (test code = 437) NEUTROPHILS ABSOLUTE COUNT 4.39 K/ L 1.78-5.38 (BEAKER) (test code = 670) LYMPHOCYTES ABSOLUTE COUNT 1.89 K/ L 1.32-3.57 (BEAKER) (test code = 414) MONOCYTES ABSOLUTE COUNT (BEAKER) 0.63 K/ L 0.30-0.82 (test code = 415) EOSINOPHILS ABSOLUTE COUNT 0.20 K/ L 0.04-0.54 (BEAKER) (test code = 416) BASOPHILS ABSOLUTE COUNT (BEAKER) 0.06 K/ L 0.01-0.08 (test code = 417) IMMATURE GRANULOCYTES-RELATIVE 0 % 0-1 PERCENT (BEAKER) (test code = 2801) RAD, CHEST, 1 VIEW, NON [id number] 02:29:00Post-intubationReason for exam:- >chest pain s/p PCIShould this be performed at the bedside?->YesFINAL REPORT RAD, CHEST, 1 VIEW, NON DEPT INDICATION: chest pain s/p PCI COMPARISON: None FINDINGS: Portable frontal view of the chest. IMPRESSION: Support Lines: None Lungs and pleura: Clear lungs. No effusion. No pneumothorax.Heart and mediastinum: Unremarkable.Additional findings: None. Signed: JR Bai Robert MDReport Verified Date/Time: 05/27/2018 02:29:42 Reading Location: [address] Reading Room [id number] 05:57:00 Test Item Value Reference Range Interpretation Comments MAGNESIUM (BEAKER) (test code = 2.3 mg/dL 1.6-2.6 627) Please draw today if not done already.BASIC METABOLIC [id number] 05:57:00 Test Item Value Reference Range Interpretation Comments SODIUM (BEAKER) 133 meq/L 136-145 L (test code = 381) POTASSIUM (BEAKER) 4.6 meq/L 3.5-5.1 (test code = 379) CHLORIDE (BEAKER) 105 meq/L 98-107 (test code = 382) CO2 (BEAKER) (test 19 meq/L 22-29 L code = 355) BLOOD UREA NITROGEN 17 mg/dL 7-21 (BEAKER) (test code = 354) CREATININE (BEAKER) 1.28 mg/dL 0.57-1.25 H (test code = 358) GLUCOSE RANDOM 97 mg/dL 70-105 (BEAKER) (test code = 652) CALCIUM (BEAKER) 9.0 mg/dL 8.4-10.2 (test code = 697) EGFR (BEAKER) (test 57 mL/min/1.73 ESTIMA PADMA GFR IS code = 1092) sq m NOT ACCURATE CREATININE CLEARANCE IN PREDICTING GLOMERULAR FILTRATION RATE . ESTIMATED GFR I S NOT APPLICABLE FOR DIALYSIS PATIEN TS. Please draw today if not done already.CBC (HEMOGRAM ONLY)2018-05-16 05:24:00 Test Item Value Reference Range Interpretation Comments WHITE BLOOD CELL COUNT (BEAKER) 9.9 K/ L 3.5-10.5 (test code = 775) RED BLOOD CELL COUNT (BEAKER) 5.67 M/ L 4.63-6.08 (test code = 761) HEMOGLOBIN (BEAKER) (test code = 15.0 GM/DL 13.7-17.5 410) HEMATOCRIT (BEAKER) (test code = 46.3 % 40.1-51.0 411) MEAN CORPUSCULAR VOLUME (BEAKER) 81.7 fL 79.0-92.2 (test code = 753) MEAN CORPUSCULAR HEMOGLOBIN 26.5 pg 25.7-32.2 (BEAKER) (test code = 751) MEAN CORPUSCULAR HEMOGLOBIN CONC 32.4 GM/DL 32.3-36.5 (BEAKER) (test code = 752) RED CELL DISTRIBUTION WIDTH 16.4 % 11.6-14.4 H (BEAKER) (test code = 412) PLATELET COUNT (BEAKER) (test 252 K/CU MM 150-450 code = 756) MEAN PLATELET VOLUME (BEAKER) 10.4 fL 9.4-12.4 (test code = 754) NUCLEATED RED BLOOD CELLS 0 /100 WBC 0-0 (BEAKER) (test code = 413) [id number] 13:36:00 Test Item Value Reference Range Interpretation Comments MAGNESIUM (BEAKER) (test code = 2.4 mg/dL 1.6-2.6 627) CBC (HEMOGRAM ONLY)2018-05-15 03:50:00 Test Item Value Reference Range Interpretation Comments WHITE BLOOD CELL COUNT (BEAKER) 9.0 K/ L 3.5-10.5 (test code = 775) RED BLOOD CELL COUNT (BEAKER) 5.05 M/ L 4.63-6.08 (test code = 761) HEMOGLOBIN (BEAKER) (test code = 13.3 GM/DL 13.7-17.5 L 410) HEMATOCRIT (BEAKER) (test code = 41.3 % 40.1-51.0 411) MEAN CORPUSCULAR VOLUME (BEAKER) 81.8 fL 79.0-92.2 (test code = 753) MEAN CORPUSCULAR HEMOGLOBIN 26.3 pg 25.7-32.2 (BEAKER) (test code = 751) MEAN CORPUSCULAR HEMOGLOBIN CONC 32.2 GM/DL 32.3-36.5 L (BEAKER) (test code = 752) RED CELL DISTRIBUTION WIDTH 16.1 % 11.6-14.4 H (BEAKER) (test code = 412) PLATELET COUNT (BEAKER) (test 224 K/CU MM 150-450 code = 756) MEAN PLATELET VOLUME (BEAKER) 10.9 fL 9.4-12.4 (test code = 754) NUCLEATED RED BLOOD CELLS 0 /100 WBC 0-0 (BEAKER) (test code = 413) BASIC METABOLIC [id number] 03:49:00 Test Item Value Reference Range Interpretation Comments SODIUM (BEAKER) 137 meq/L 136-145 (test code = 381) POTASSIUM (BEAKER) 4.4 meq/L 3.5-5.1 (test code = 379) CHLORIDE (BEAKER) 107 meq/L 98-107 (test code = 382) CO2 (BEAKER) (test 21 meq/L 22-29 L code = 355) BLOOD UREA NITROGEN 16 mg/dL 7-21 (BEAKER) (test code = 354) CREATININE (BEAKER) 1.24 mg/dL 0.57-1.25 (test code = 358) GLUCOSE RANDOM 105 mg/dL 70-105 (BEAKER) (test code = 652) CALCIUM (BEAKER) 8.1 mg/dL 8.4-10.2 L (test code = 697) EGFR (BEAKER) (test 59 mL/min/1.73 ESTIMA PADMA GFR IS code = 1092) sq m NOT ACCURATE CREATININE CLEARANCE IN PREDICTING GLOMERULAR FILTRATION RATE . ESTIMATED GFR I S NOT APPLICABLE FOR DIALYSIS PATIEN TS. FastingLIPID [id number] 03:44:00 Test Item Value Reference Range Interpretation Comments TRIGLYCERIDES (BEAKER) (test code = 148 mg/dL 540) CHOLESTEROL (BEAKER) (test code = 157 mg/dL 631) HDL CHOLESTEROL (BEAKER) (test code 28 mg/dL = 976) LDL CHOLESTEROL CALCULATED (BEAKER) 99 mg/dL (test code = 633) Triglyceride Reference Range: Low Risk <150 Borderline 150-199 High Risk 200- 499 Very High Risk >=500Cholesterol Reference Range: Low Risk <200 Borderline 200-239 High Risk >240HDL Cholesterol Reference Range: Low Risk >=60 High Risk <40LDL Cholesterol Reference Range: Optimal <100 Near Optimal 100-129 Borderline 130-159 High 160-189 Very High >=190 Fasting [id number] 03:44:00 Test Item Value Reference Range Interpretation Comments MAGNESIUM (BEAKER) (test code = 1.6 mg/dL 1.6-2.6 627) [id number] 19:12:00 Test Item Value Reference Range Interpretation Comments MAGNESIUM (BEAKER) (test code = 2.0 mg/dL 1.6-2.6 627) BASIC METABOLIC [id number] 19:12:00 Test Item Value Reference Range Interpretation Comments SODIUM (BEAKER) 137 meq/L 136-145 (test code = 381) POTASSIUM (BEAKER) 4.3 meq/L 3.5-5.1 (test code = 379) CHLORIDE (BEAKER) 103 meq/L 98-107 (test code = 382) CO2 (BEAKER) (test 26 meq/L 22-29 code = 355) BLOOD UREA NITROGEN 14 mg/dL 7-21 (BEAKER) (test code = 354) CREATININE (BEAKER) 1.33 mg/dL 0.57-1.25 H (test code = 358) GLUCOSE RANDOM 118 mg/dL 70-105 H (BEAKER) (test code = 652) CALCIUM (BEAKER) 9.8 mg/dL 8.4-10.2 (test code = 697) EGFR (BEAKER) (test 55 mL/min/1.73 ESTIMA PADMA GFR IS code = 1092) sq m NOT ACCURATE CREATININE CLEARANCE IN PREDICTING GLOMERULAR FILTRATION RATE . ESTIMATED GFR I S NOT APPLICABLE FOR DIALYSIS PATIEN TS. TROPONIN [id number] 13:58:00 Test Item Value Reference Range Interpretation Comments TROPONIN I (BEAKER) (test code = 45.21 ng/mL 0.00-0.03 397) Troponin I (TnI) levels must be interpreted in the context of the presenting symptoms and the clinical findings. Elevated TnI levels indicate myocardial damage, but are not specific for ischemic heart disease. Elevated TnI levels are seen in patients with other cardiac conditions (including myocarditis and congestive heart failure), and slight TnI elevations occur in patients with other conditions, including sepsis, renal failure, acidosis, acute neurological disease, and persistent tachyarrhythmia.B-TYPE NATRIURETIC FACTOR (BNP) 2018-05-14 13:48:00 Test Item Value Reference Range Interpretation Comments B-TYPE NATRIURETIC PEPTIDE (BEAKER) 102 pg/mL 0-100 H (test code = 700) HEMOGLOBIN [id number] 12:14:00 Test Item Value Reference Range Interpretation Comments HEMOGLOBIN A1C (BEAKER) (test code = 6.3 % 4.3-6.1 H 368) CREATINE KINASE (CK), TOTAL AND [id number] 08:44:00 Test Item Value Reference Range Interpretation Comments CREATINE KINASE TOTAL (BEAKER) 304 U/L 29-200 H (test code = 380) CREATINE KINASE-MB (BEAKER) (test 6.8 ng/mL 0.0-6.6 H code = 750) CREATINE KINASE-MB INDEX (BEAKER) 2.2 % (test code = 395) CK-MB Reference Range:<6.7 Normal6.7-10.0 Borderline>10.0 AbnormalTROPONIN [id number] 08:44:00 Test Item Value Reference Range Interpretation Comments TROPONIN I (BEAKER) (test code = 0.07 ng/mL 0.00-0.03 H 397) Troponin I (TnI) levels must be interpreted in the context of the presenting symptoms and the clinical findings. Elevated TnI levels indicate myocardial damage, but are not specific for ischemic heart disease. Elevated TnI levels are seen in patients with other cardiac conditions (including myocarditis and congestive heart failure), and slight TnI elevations occur in patients with other conditions, including sepsis, renal failure, acidosis, acute neurological disease, and persistent tachyarrhythmia.[id number] 08:40:00 Test Item Value Reference Range Interpretation Comments MAGNESIUM (BEAKER) 2.3 mg/dL 1.6-2.6 Specimen slightly (test code = 627) hemolyzed BASIC METABOLIC [id number] 08:40:00 Test Item Value Reference Range Interpretation Comments SODIUM (BEAKER) 136 meq/L 136-145 (test code = 381) POTASSIUM (BEAKER) 4.7 meq/L 3.5-5.1 Specimen slightly (test code = 379) hemolyzed CHLORIDE (BEAKER) 107 meq/L 98-107 (test code = 382) CO2 (BEAKER) (test 20 meq/L 22-29 L code = 355) BLOOD UREA NITROGEN 15 mg/dL 7-21 (BEAKER) (test code = 354) CREATININE (BEAKER) 1.25 mg/dL 0.57-1.25 Specimen slightly (test code = 358) hemolyzed GLUCOSE RANDOM 164 mg/dL 70-105 H (BEAKER) (test code = 652) CALCIUM (BEAKER) 9.3 mg/dL 8.4-10.2 (test code = 697) EGFR (BEAKER) (test 59 mL/min/1.73 INSUFF ICIENT CLINICAL code = 1092) sq m DATA TO CALCULA TE ESTIMATED GFR. LIPID [id number] 08:40:00 Test Item Value Reference Range Interpretation Comments TRIGLYCERIDES (BEAKER) 337 mg/dL Speci men slightly (test code = 540) hemolyzed CHOLESTEROL (BEAKER) 200 mg/dL Specime n slightly (test code = 631) hemolyzed HDL CHOLESTEROL (BEAKER) 27 mg/dL (test code = 976) LDL CHOLESTEROL 106 mg/dL CALCULATED (BEAKER) (test code = 633) Triglyceride Reference Range: Low Risk <150 Borderline 150-199 High Risk 200- 499 Very High Risk >=500Cholesterol Reference Range: Low Risk <200 Borderline 200-239 High Risk >240HDL Cholesterol Reference Range: Low Risk >=60 High Risk <40LDL Cholesterol Reference Range: Optimal <100 Near Optimal 100-129 Borderline 130-159 High 160-189 Very High >=190PROTHROMBIN [id number] 08:19:00 Test Item Value Reference Range Interpretation Comments PROTIME (BEAKER) (test code = 12.6 seconds 11.7-14.7 759) INR (BEAKER) (test code = 370) 0.9 <=5.9 RECOMMENDED COUMADIN/WARFARIN INR THERAPY RANGESSTANDARD DOSE: 2.0 - 3.0 Includes: PROPHYLAXIS for venous thrombosis, systemic embolization; TREATMENT for venous thrombosis and/or pulmonary embolus.HIGH RISK: Target INR is 2.5-3.5 for patients with mechanical heart valves.CBC (HEMOGRAM ONLY)2018-05-14 08:08:00 Test Item Value Reference Range Interpretation Comments WHITE BLOOD CELL COUNT (BEAKER) 8.1 K/ L 3.5-10.5 (test code = 775) RED BLOOD CELL COUNT (BEAKER) 5.62 M/ L 4.63-6.08 (test code = 761) HEMOGLOBIN (BEAKER) (test code = 14.8 GM/DL 13.7-17.5 410) HEMATOCRIT (BEAKER) (test code = 46.2 % 40.1-51.0 411) MEAN CORPUSCULAR VOLUME (BEAKER) 82.2 fL 79.0-92.2 (test code = 753) MEAN CORPUSCULAR HEMOGLOBIN 26.3 pg 25.7-32.2 (BEAKER) (test code = 751) MEAN CORPUSCULAR HEMOGLOBIN CONC 32.0 GM/DL 32.3-36.5 L (BEAKER) (test code = 752) RED CELL DISTRIBUTION WIDTH 16.6 % 11.6-14.4 H (BEAKER) (test code = 412) PLATELET COUNT (AKER) (test 259 K/CU MM 150-450 code = 756) MEAN PLATELET VOLUME (BEAKER) 10.7 fL 9.4-12.4 (test code = 754) NUCLEATED RED BLOOD CELLS 0 /100 WBC 0-0 (AKER) (test code = 413) [id number] 08:07:00 Test Item Value Reference Range Interpretation Comments ACTIVATED CLOTTING TIME [address] [facility] ([facility]) (test code = KEMAR MONTOYA 441) [id number]
[2023-01-18 06:41] LABS: Absolute Lymphocytes (CBC) 0.7 K/uL (0.7-4.9); Hematocrit 47.5 % (39.6-49.0); Lymphocytes % 8.6 % (15.3-44.8); MCV 83.5 fL (80-100); MPV 8.1 fL (7.6-11.3); RBC Red Blood Cell Count 5.69 M/uL (4.33-5.43)
[2023-01-18 06:43] LABS: Protime INR 0.91
[2023-01-18 07:01] LABS: ALT/SGPT 37 U/L (16-61); AST/SGOT 17 U/L (15-37); Albumin 3.7 g/dL (3.4-5.0); Alkaline Phosphatase 73 U/L (45-117); BUN Blood Urea Nitrogen 20 mg/dL (7-18); Bicarbonate 28 mEq/L (21-32); Bilirubin Total 0.4 mg/dL (0.2-1.0); Glomerular Filtration Rate 50 ml/min (=/>90); Glucose Level 174 mg/dL (74-106); Magnesium 2.3 mg/dL (1.6-2.4); NT PRO-BNP 18 pg/mL (<125); Potassium 4.6 mEq/L (3.5-5.1); Protein, Total 7.4 g/dL (6.4-8.2); Sodium Level 134 mEq/L (136-145)
[2023-01-18] MEDS ORDERED: ONDANSETRON 4 MG/2 ML VIAL ONE ×2 (07:02→11:28)
[2023-01-18 07:06] LABS: Bilirubin Direct < 0.1 mg/dL (0-0.2)
[2023-01-18 07:15] LABS: SARS-COV-2 RT PCR NEGATIVE (NEGATIVE)
--- NOTE | 2023-01-18 07:46 | RAD REPORT ---
EXAM DESCRIPTION: CT - Chest For Pe Angio - 01/18/2023 7:31 am CLINICAL HISTORY: Hypoxia, syncope COMPARISON: None. TECHNIQUE: Dynamically enhanced axial 3 mm thick images of the chest were obtained during administra tion of 100 mL Isovue 370 IV contrast. Coronal and oblique reconstruction images were generated and r eviewed. Exam utilizes a protocol for optimal evaluation of pulmonary arterial tree. Maximum intensity projections 3D imaging was utilized All CT scans are performed using dose optimization technique as appropriate and may include automated exposure control or mA/KV adjustment according to patient size. FINDINGS: A pulmonary embolus is not seen. A thoracic aortic aneurysm is not noted. A pleural effusion is not seen. A pericardial effusion is not seen. A lung consolidation is not present. IMPRESSION: Negative for a pulmonary embolism.
--- NOTE | 2023-01-18 09:08 | ER ---
Nurse's Notes [facility] Name: Ramez Boothe Age: 67 yrs Sex: Male : 1955 Arrival Date: 01/18/2023 Time: 06:13 Bed 5 Private MD: Diagnosis: Near Syncope Presentation: 01/18 06:13 Chief complaint: Chief complaint: EMS states: pt had an episode of generalized lg3 weakness, nausea and became diaphoretic at 0530. pt has cardiac history and became concerned. pt had another episode of weakness, nausea and became diaphoretic [employer]. O2 89% on room air in transit. placed on 2LNC and recovered to mid 90's. denies chest pain or LOC. Coronavirus screen: Client denies travel out of the [place] in the last 14 days. At this time, the client does not indicate any symptoms associated with coronavirus-19. Ebola Screen: No symptoms or risks identified at this time. Initial Sepsis Screen: Does the patient meet any 2 criteria? No. Patient's initial sepsis screen is negative. Does the patient have a suspected source of infection? No. Patient's initial sepsis screen is negative. Risk Assessment: Do you want to hurt yourself or someone else? Patient reports no desire to harm self or others. Onset of symptoms was January 18, 2023. 06:13 Method Of Arrival: EMS: [facility] lg3 06:13 Acuity: MARGARET 3 lg3 Triage Assessment: 06:18 General: Appears in no apparent distress. comfortable, Behavior is calm, cooperative. lg3 Pain: Denies pain. EENT: No deficits noted. No signs and/or symptoms were reported regarding the EENT system. Neuro: No deficits noted. Hicks Agitation-Sedation Scale (RASS): 0 - Alert and Calm Level of Consciousness is awake, alert, obeys commands, Oriented to person, place, time, situation. Cardiovascular: No deficits noted. Denies chest pain, shortness of breath, Capillary refill < 3 seconds Clubbing of nail beds is absent JVD is absent. Respiratory: Airway is patent Respiratory effort is even, unlabored, Respiratory pattern is regular, symmetrical, Breath sounds are clear bilaterally. Denies cough, shortness of breath labored breathing. GI: No deficits noted. Abdomen is round non-distended, obese, Abd is soft and non tender X 4 quads. : No deficits noted. No signs and/or symptoms were reported regarding the genitourinary system. Derm: No signs and/or symptoms reported regarding the dermatologic system. Skin is intact, is healthy with good turgor, Skin is diaphoretic, Skin is normal, Skin temperature is cool. Musculoskeletal: No deficits noted. Circulation, motion, and sensation intact. Range of motion: intact in all extremities, Reports generalized weakness. Historical: - Allergies: 06:18 No Known Allergies; lg3 - Home Meds: 06:18 Aspirin Oral [Active]; atorvastatin Oral [Active]; lisinopril Oral [Active]; Metoprolol lg3 Tartrate Oral [Active]; Plavix Oral [Active]; - PMHx: 06:18 cardiac stent; Hyperlipidemia; Hypertension; Myocardial infarction; lg3 - PSHx: 06:18 back; lg3 - Immunization history:: Adult Immunizations up to date, Client reports receiving the 2nd dose of the Covid vaccine, Pneumococcal vaccine status is unknown, Flu vaccine is up to date. - Social history:: Smoking status: Patient/guardian denies using tobacco, but has a distant history of tobacco abuse, Patient/guardian denies using alcohol, street drugs. Screenin:23 [facility] ED Fall Risk Assessment (Adult) History of falling in the last 3 months, lg3 including since admission No falls in past 3 months (0 pts). Abuse screen: Denies threats or abuse. Denies injuries from another. Nutritional screening: No deficits noted. Tuberculosis screening: No symptoms or risk factors identified. Assessment: 06:22 General: see triage assessment . lg3 07:15 Reassessment: RECD REPORT FROM SUZY PINEDA. 67YO WM P/W GEN WEAKNESS AND DIAPHORESIS. bp RESULTS PENDING. 07:15 General: Appears in no apparent distress. comfortable, Behavior is calm, cooperative, kc6 appropriate for age. Pain: Denies pain. Neuro: Hicks Agitation-Sedation Scale (RASS): 0 - Alert and Calm Level of Consciousness is awake, alert, obeys commands, Oriented to person, place, time, situation, Appropriate for age. Cardiovascular: Heart tones S1 S2 present Capillary refill < 3 seconds Rhythm is sinus rhythm. Respiratory: Airway is patent Trachea midline Respiratory effort is even, unlabored, Respiratory pattern is regular, symmetrical, Denies shortness of breath. GI: Reports nausea, Patient currently denies diarrhea, vomiting. : No signs and/or symptoms were reported regarding the genitourinary system. EENT: No signs and/or symptoms were reported regarding the EENT system. Derm: No signs and/or symptoms reported regarding the dermatologic system. Skin is intact, Skin is pink, warm \T\ dry. Musculoskeletal: Reports weakness in generalized. 08:10 Reassessment: Patient appears in no apparent distress at this time. No changes from [facility] previously documented assessment. Patient and/or family updated on plan of care and expected duration. Pain level reassessed. Patient is alert, oriented x 3, equal unlabored respirations, skin warm/dry/pink. Patient denies pain at this time. 09:05 Reassessment: Patient appears in no apparent distress at this time. No changes from [facility] previously documented assessment. Patient and/or family updated on plan of care and expected duration. Pain level reassessed. Patient is alert, oriented x 3, equal unlabored respirations, skin warm/dry/pink. Patient denies pain at this time. 10:05 Reassessment: Patient appears in no apparent distress at this time. No changes from [facility] previously documented assessment. Patient and/or family updated on plan of care and expected duration. Pain level reassessed. Patient is alert, oriented x 3, equal unlabored respirations, skin warm/dry/pink. Patient denies pain at this time. 10:35 Reassessment: pt to ultrasound via wheelchair. kc 11:05 Reassessment: Patient appears in no apparent distress at this time. No changes from [facility] previously documented assessment. Patient and/or family updated on plan of care and expected duration. Pain level reassessed. Patient is alert, oriented x 3, equal unlabored respirations, skin warm/dry/pink. Patient denies pain at this time. 12:00 Reassessment: please refer to [facility] for further charting. 6 Vital Signs: 06:13 BP 130 / 63; Pulse 73; Resp 16 S; Temp 97.7(O); Pulse Ox 90% on R/A; Weight 99.79 kg lg3 (R); Height 5 ft. 4 in. (R); Pain 0/10; 06:22 Pulse Ox 96% on 3 lpm NC; lg3 07:15 BP 116 / 68; Pulse 69; Resp 14; Pulse Ox 100% ; bp 08:10 BP 125 / 66; Pulse 71; Resp 19 S; Pulse Ox 100% on 2 lpm NC; Pain 0/10; kc6 09:06 BP 125 / 65; Pulse 85; Resp 18 S; Pulse Ox 96% on R/A; kc6 10:18 BP 128 / 75; Pulse 90; Resp 17 S; Pulse Ox 94% on R/A; kc6 06:13 Body Mass Index 37.76 (99.79 kg, 162.56 cm) lg3 06:13 Pain Scale: Adult lg3 08:10 Pain Scale: Adult kc6 ED Course: 06:13 Patient arrived in ED. lg3 06:13 Sherron Davis MD is Attending Physician. sp3 06:18 Triage completed. lg3 06:18 Arm band placed on right wrist. lg3 06:22 Oxygen administration via nasal cannula \T\ 3L/min. lg3 06:23 Patient has correct armband on for positive identification. Placed in gown. Bed in low lg3 position. Call light in reach. Side rails up X 1. Client placed on continuous cardiac and pulse oximetry monitoring. NIBP monitoring applied. residential monitor on. Door closed. Noise minimized. Warm blanket given. 06:23 Maintain EMS IV. Dressing intact. Good blood return noted. Site clean \T\ dry. Gauge \T\ lg 3 site: 20 LFA. 06:31 XRAY Chest (1 view) In Process Unspecified. EDMS 07:00 Report received from Suzy RN and EDWIN Taylor. kc6 07:03 Attending Physician role handed off by Sherron Davis MD rt 07:03 Pedro Contreras MD is Attending Physician. rt 07:15 Dominick Lehman, RN is Primary Nurse. bp 07:33 CT Chest For PE Angio In Process Unspecified. EDMS 09:06 German Barragan MD is Hospitalizing Provider. rt 11:17 Abdomen Wo Contrast In Process Unspecified. EDMS 11:20 Carotid Artery Bilateral In Process Unspecified. EDMS 14:53 No provider procedures requiring assistance completed. Patient admitted, IV remains in kc6 place. Administered Medications: 06:59 Drug: Ondansetron IVP 4 mg Route: IVP; Site: left antecubital; pf1 08:36 Follow up: Response: No adverse reaction; Nausea is decreased kc6 Medication: 14:54 VIS not applicable for this client. kc6 Outcome: 09:07 Decision to Hospitalize by Provider. rt 14:54 Admitted to Med/surg accompanied by tech, via wheelchair, room 231, with chart, Report kc6 called to EDWIN Wyman 14:54 Condition: stable 14:54 Instructed on the need for admit. 14:59 Patient left the ED. kc6 Signatures: Dispatcher [employer] EDMS Dominick Lehman, RN RN bp Suzy Medrano RN RN lg3 Sherron Davis MD MD sp3 Maribeth Josue RN RN kc6 Pedro Contreras MD MD rt Mali walters RN RN pf1
--- NOTE | 2023-01-18 09:08 | EDPHYS ---
Physician Documentation [facility] Name: Ramez Boothe Age: 67 yrs Sex: Male : 1955 Arrival Date: 01/18/2023 Time: 06:13 Bed 5 Private MD: ED Physician Pedro Contreras HPI: 01/18 06:15 This 67 yrs old Male presents to ER via Unassigned with complaints of near syncope and sp3 sweating/malaise. 06:15 67-year-old male with a history of LA, stents x2, hypertension who presents to the ED sp3 with chief complaint near syncope, diaphoresis and generalized malaise at approximately 5 AM today. Second episode happened in the ambulance in route to the ED. Patient denies overt chest pain or back pain. Patient sees PCP at [facility] in [place]. Patient also has mild shortness of breath with pulse oxygenation being low for EMS in the high 80s. He denies any prolonged immobilization or long standing travel. No history of blood clots, DVT, pulm embolism in the family. No known sick contacts reported. Review systems otherwise negative for fever, URI symptoms, headache, neck pain, back pain, abdominal pain, nausea, vomiting, diarrhea, full syncope, focal neurodeficit, rash, or any other symptoms at this time.. Historical: - Allergies: 06:18 No Known Allergies; lg3 - Home Meds: 06:18 Aspirin Oral [Active]; atorvastatin Oral [Active]; lisinopril Oral [Active]; Metoprolol lg3 Tartrate Oral [Active]; Plavix Oral [Active]; - PMHx: 06:18 cardiac stent; Hyperlipidemia; Hypertension; Myocardial infarction; lg3 - PSHx: 06:18 back; lg3 - Immunization history:: Adult Immunizations up to date, Client reports receiving the 2nd dose of the Covid vaccine, Pneumococcal vaccine status is unknown, Flu vaccine is up to date. - Social history:: Smoking status: Patient/guardian denies using tobacco, but has a distant history of tobacco abuse, Patient/guardian denies using alcohol, street drugs. ROS: 06:18 Constitutional: Negative for fever, chills, and weight loss, Eyes: Negative for injury, sp3 pain, redness, and discharge, ENT: Negative for injury, pain, and discharge, Neck: Negative for injury, pain, and swelling, Abdomen/GI: Negative for abdominal pain, nausea, vomiting, diarrhea, and constipation, Back: Negative for injury and pain, MS/Extremity: Negative for injury and deformity, Skin: Negative for injury, rash, and discoloration, Allergy/Immunology: Negative for hives, rash, and allergies, Endocrine: Negative for neck swelling, polydipsia, polyuria, polyphagia, and marked weight changes, Hematologic/Lymphatic: Negative for swollen nodes, abnormal bleeding, and unusual bruising. 06:18 All other systems are negative. Exam: 06:19 Constitutional: This is a well developed, well nourished patient who is awake, alert, sp3 and in no acute distress. Head/Face: Normocephalic, atraumatic. Eyes: Pupils equal round and reactive to light, extra-ocular motions intact. Lids and lashes normal. Conjunctiva and sclera are non-icteric and not injected. Cornea within normal limits. Periorbital areas with no swelling, redness, or edema. ENT: Nares patent. No nasal discharge, no septal abnormalities noted. External auditory canals are clear. Oropharynx with no redness, swelling, or masses, exudates, or evidence of obstruction, uvula midline. Mucous membranes moist. Neck: Trachea midline, no thyromegaly or masses palpated, and no cervical lymphadenopathy. Supple, full range of motion without nuchal rigidity, or vertebral point tenderness. No Meningismus. Chest/axilla: Normal chest wall appearance and motion. Nontender with no deformity. No lesions are appreciated. Cardiovascular: Regular rate and rhythm with a normal S1 and S2. No gallops, murmurs, or rubs. Normal PMI, no JVD. No pulse deficits. Respiratory: Lungs have equal breath sounds bilaterally, clear to auscultation and percussion. No rales, rhonchi or wheezes noted. No increased work of breathing, no retractions or nasal flaring. Abdomen/GI: Soft, non-tender, with normal bowel sounds. No distension or tympany. No guarding or rebound. No evidence of tenderness throughout. Skin: Warm, dry with normal turgor. Normal color with no rashes, no lesions, and no evidence of cellulitis. MS/ Extremity: Pulses equal, no cyanosis. Neurovascular intact. Full, normal range of motion. Neuro: Awake and alert, GCS 15, oriented to person, place, time, and situation. Cranial nerves II-XII grossly intact. Motor strength 5/5 in all extremities. Sensory grossly intact. Cerebellar exam normal. Normal gait. Psych: Awake, alert, with orientation to person, place and time. Behavior, mood, and affect are within normal limits. 06:20 ECG was reviewed by the Attending Physician. EKG demonstrates normal sinus rhythm with sp3 a first-degree AV block of 214 ms UT interval, normal axis, normal QRS with mild Q waves in lead III isolated and nonspecific ST/T-segment changes particularly in lead aVL without reciprocal changes. No signs of acute ischemia noted. Vital Signs: 06:13 BP 130 / 63; Pulse 73; Resp 16 S; Temp 97.7(O); Pulse Ox 90% on R/A; Weight 99.79 kg lg3 (R); Height 5 ft. 4 in. (R); Pain 0/10; 06:22 Pulse Ox 96% on 3 lpm NC; lg3 07:15 BP 116 / 68; Pulse 69; Resp 14; Pulse Ox 100% ; bp 08:10 BP 125 / 66; Pulse 71; Resp 19 S; Pulse Ox 100% on 2 lpm NC; Pain 0/10; kc6 09:06 BP 125 / 65; Pulse 85; Resp 18 S; Pulse Ox 96% on R/A; kc6 10:18 BP 128 / 75; Pulse 90; Resp 17 S; Pulse Ox 94% on R/A; kc6 06:13 Body Mass Index 37.76 (99.79 kg, 162.56 cm) lg3 06:13 Pain Scale: Adult lg3 08:10 Pain Scale: Adult kc6 MDM: 06:13 Patient medically screened. sp3 06:19 Data reviewed: vital signs, nurses notes, EMS record, lab test result(s), EKG, sp3 radiologic studies. ED course: 67-year-old male with chief complaint near syncope and diaphoresis. This could represent anginal equivalents and we will approach her from that standpoint given patient's cardiac history. Patient also states that he recently saw registered nurse supervisor who performed a cardiac stress test and demonstrated no significant abnormality. Patient also has pulse oxygenation in the ED of 89% on room air which came up with 2 L of nasal cannula to the mid 90s to upper 90s. Differential diagnosis includes acute coronary syndrome, pulmonary embolism, process including pneumonia or viral syndrome, among others. I believe patient is septic or in shock we will obtain laboratory values, CT scan of the chest PE protocol, EKG and general observation. Consider 23 observation with serial cardiac markers once initial work-up is complete. Given change of shift, I will sign this patient out to Dr. Contreras for his final disposition.. 09:11 Differential diagnosis: acute myocardial infarction, coronary artery disease congestive rt heart failure pneumonia, pneumothorax, pulmonary embolus. Consideration of Admission/Observation Patient was admitted/placed on observation. Management of patient was discussed with the following: Hospitalist: Agrees to admit. Independent interpretation of the following test(s) in the Emergency Department CT Scan: My interpretation is No consolidation seen on interpretation of the CT scan images. Care significantly affected by the following chronic conditions: Hypertension, Coronary artery disease. Counseling: I had a detailed discussion with the patient and/or guardian regarding: the historical points, exam findings, and any diagnostic results supporting the discharge/admit diagnosis, lab results, radiology results, the need for further work-up and treatment in the hospital. 01/18 06:14 Order name: Basic Metabolic Panel; Complete Time: 07:10 sp3 01/18 06:14 Order name: CBC with Diff; Complete Time: 06:47 sp3 01/18 06:14 Order name: LFT's; Complete Time: 07:10 sp3 01/18 06:14 Order name: Magnesium; Complete Time: 07:10 sp3 01/18 06:14 Order name: NT PRO-BNP; Complete Time: 07:10 sp3 01/18 06:14 Order name: PT-INR; Complete Time: 06:47 3 01/18 06:14 Order name: Troponin HS; Complete Time: 07:10 sp3 01/18 06:14 Order name: COVID-19/FLU A+B; Complete Time: 07:19 sp3 01/18 10:24 Order name: Magnesium EDMS 01/18 10:24 Order name: NT PRO-BNP EDMS 01/18 10:24 Order name: Phosphorus EDMS 01/18 10:24 Order name: T4 Free EDMS 01/18 10:24 Order name: Thyroid Stimulating Hormone EDNV 01/18 10:25 Order name: Urinalysis w/ reflexes EDMS 01/18 10:25 Order name: Basic Metabolic Panel EDMS 01/18 10:25 Order name: Basic Metabolic Panel EDMS 01/18 10:25 Order name: CBC with Automated Diff EDMS 01/18 10:25 Order name: CBC with Automated Diff EDMS 01/18 06:14 Order name: XRAY Chest (1 view) sp3 01/18 06:14 Order name: CT Chest For PE Angio; Complete Time: 08:50 sp3 01/18 10:16 Order name: Echo with Doppler EDMS 01/18 10:16 Order name: ERT ORTHOSTATIC V/S EDMS 01/18 10:16 Order name: ERT ORTHOSTATIC V/S EDMS 01/18 10:16 Order name: ERT ORTHOSTATIC V/S EDMS 01/18 10:16 Order name: ERT ORTHOSTATIC V/S EDMS 01/18 10:16 Order name: ERT ORTHOSTATIC V/S EDMS 01/18 10:16 Order name: Carotid Artery Bilateral EDMS 01/18 10:19 Order name: Abdomen Wo Contrast EDMS 01/18 06:14 Order name: EKG; Complete Time: 06:14 sp3 01/18 10:24 Order name: Heart Healthy EDMS 01/18 06:14 Order name: Cardiac monitoring; Complete Time: 06:51 sp3 01/18 06:14 Order name: EKG - Nurse/Tech; Complete Time: 06:21 sp3 01/18 06:14 Order name: IV Saline Lock; Complete Time: 06:26 sp3 01/18 06:14 Order name: Labs collected and sent; Complete Time: 06:51 sp3 01/18 06:14 Order name: O2 Per Protocol; Complete Time: 06:26 sp3 01/18 06:14 Order name: O2 Sat Monitoring; Complete Time: 06:26 sp3 Administered Medications: 06:59 Drug: Ondansetron IVP 4 mg Route: IVP; Site: left antecubital; pf1 08:36 Follow up: Response: No adverse reaction; Nausea is decreased kc6 Disposition Summary: 01/18/23 09:07 Hospitalization Ordered Hospitalization Status: Observation rt Provider: German Barragan rt Condition: Stable rt Problem: new rt Symptoms: have improved rt Bed/Room Type: Standard rt Location: Telemetry/MedSurg (observation)(01/18/23 14:40) eb Room Assignment: 231(01/18/23 14:40) eb Diagnosis - Near Syncope rt Forms: - Medication Reconciliation Form rt - SBAR form rt Signatures: Dispatcher [employer] Jt Mueller em1 Lucy Martell Lacie, EDWIN RN lg3 Sherron Davis MD MD sp3 Pedro Contreras MD MD rt Mali walters RN RN pf1 Maribeth Josue RN kc6 Corrections: (The following items were deleted from the chart) 09:07 Telemetry/MedSurg (observation) rt em1 10 09:07 rt em1 14:40 10:31 [facility] ER HOLD em1 eb 14:40 10:31 ERHOLD- em1 eb
[2023-01-18] MEDS ORDERED: ACETAMINOPHEN 325 MG TABLET PO PRN (10:09)
[2023-01-18] MEDS ORDERED: SODIUM CHLORIDE 0.9% 10ML INJ IV PRN (10:22)
[2023-01-18] MEDS ORDERED: HYDRALAZINE HCL 20 MG/ML VIAL IV PRN (10:24)
--- NOTE | 2023-01-18 10:29 | P.HP ---
Certification for Inpatient Patient admitted to: Observation With expected LOS: <2 Midnights Patient will require the following post-hospital care: None Practitioner: I am a practitioner with admitting privileges, knowledge of patient current condition, hospital course, and medical plan of care. Services: Services provided to patient in accordance with Admission requirements found in Title 42 Section 412.3 of the Code of Federal Regulations Patient History Date of Service: 01/18/23 Reason for admission: Near syncope, dizziness History of Present Illness: Patient is a 67-year-old male with a past medical history significant for hyperlipidemia, hypertension, [place], GERD, CAD with stent who presents with complaint of dizziness and near syncope onset today this morning. Patient reported that he was at home when he started having started episode of dizziness and near syncope. Patient reported that he had to lie down quickly to prevent falls. Patient reported associated signs and symptoms of diaphoresis, headache, fatigue, sob, weakness, nausea and abdominal pain located in the epigastric area. Patient rated pain as 4/10 in severity and described pain as dull in quality. Patient denies any other signs and symptoms. Symptoms are aggravated or relieved by nothing. Patient decided to present to the hospital for medical evaluation. Allergies No Known Allergies Allergy (Verified 06/02/22 08:21) Home Medications: Atorvastatin Calcium [Lipitor] 80 mg PO BEDTIME 05/11/22 Clopidogrel Bisulfate [Plavix] 75 mg PO DAILY 05/11/22 Famotidine [Pepcid] 40 mg PO BEDTIME 05/11/22 Lisinopril [Zestril] 10 mg PO DAILY 05/11/22 Metoprolol Tartrate [Lopressor] 50 mg PO BID 05/11/22 Dexlansoprazole [Kapidex] 60 mg PO DAILY 05/16/22 Tadalafil [Cialis] 5 mg PO DAILY 06/01/22 Testost Cypionate [Depo-Testosterone*] 200 mg IM SEECOM 06/01/22 - Past Medical/Surgical History Diabetic: No -: HTN -: CAD -: Carpal tunnel bilaterally -: Diverticulitis -: Obesity -: Sleep apnea -: Angina -: Osteoarthritis -: Cardiac stents x2 -: left shoulder "bone spur removed" -: Back sx x2 - Social History Smoking Status: Former smoker Alcohol use: No Caffeine use: Yes Place of Residence: Home Review of Systems General: Sweats, Weakness, Other (fatigue) Eyes: Unremarkable ENT: Unremarkable Respiratory: Shortness of Breath Cardiovascular: Unremarkable Gastrointestinal: Nausea, Abdominal Pain Genitourinary: Unremarkable Musculoskeletal: Unremarkable Integumentary: Unremarkable Neurological: Weakness, Other (headache) Lymphatics: Unremarkable Physical Examination - Physical Exam General: Alert, In no apparent distress, Oriented x3, Cooperative HEENT: Atraumatic, PERRLA, Mucous membr. moist/pink, EOMI, Sclerae nonicteric Neck: Supple, 2+ carotid pulse no bruit, No LAD, Without JVD or thyroid abnormality Respiratory: Diminished Cardiovascular: No edema, Regular rate/rhythm, Normal S1 S2 Capillary refill: <2 Seconds Gastrointestinal: Normal bowel sounds, Tenderness Musculoskeletal: No clubbing, No swelling, No tenderness Integumentary: No rashes, No breakdown, No significant lesion Neurological: Normal speech, Normal tone, Normal affect Lymphatics: No axilla or inguinal lymphadenopathy - Studies Laboratory Data (last 24 hrs) 01/18/23 06:30: PT 10.0, INR 0.91 01/18/23 06:30: WBC 8.60, Hgb 15.8, Hct 47.5, Plt Count 264 01/18/23 06:30: Sodium 134 L, Potassium 4.6, BUN 20 H, Creatinine 1.53 H, Glucose 174 H, Magnesium 2.3, Total Bilirubin 0.4, AST 17, ALT 37, Alkaline Phosphatase 73 Assessment and Plan - Plan --Near syncope. Echocardiogram pending to assess cardiac structures and functions. Carotid Doppler to rule out any coronary artery stenosis. Telemetry to monitor for any significant arrhythmia. We will get some orthostatic vital signs. --Abdominal pain. CT abdomen indicates No acute intra-abdominal process. Left adrenal benign appearing adenoma. Colonic diverticulosis. We will manage pain on current pain medication regimen. --Shortness of breath. CTA PE protocol negative for PE or any other intrathoracic abnormality. Continue O2 therapy as needed. --GERD. Continue Protonix. --Hyperlipidemia. Continue statin. --History of TN\\CAD with stent. Continue aspirin, Plavix and statin. --Hypertension. Stable. Continue home medications. --CKD 3A. Stable. We will continue to monitor renal functions. --Class II obesity. Likely secondary to excess calories intake. Patient counseled on weight reduction, diet and excise therapy. --Osteoarthritis. We will manage pain with current pain medication regimen. --DVT prophylaxis with Lovenox subQ. Discharge Plan: Home Plan to discharge in: 48 Hours - Advance Directives Does patient have a Living Will: No Does patient have a Durable POA for Healthcare: No - Code Status/Comfort Care Code Status Assessed: Yes Physician Review: Patient Assessed, Agree with Above Assessment and Plan Critical Care: No
[2023-01-18] MEDS: PANTOPRAZOLE 40 MG INJ IVP SCH (11:00)
[2023-01-18] MEDS ORDERED: ASPIRIN 81 MG CHEWABLE TABLET ONE (11:39)
[2023-01-18] MEDS ORDERED: PANTOPRAZOLE 40 MG INJ ONE (11:39)
[2023-01-18] MEDS ORDERED: ENOXAPARIN 40 MG/0.4 ML SQ ONE (11:40)
[2023-01-18] MEDS: ASPIRIN 81 MG CHEWABLE TABLET PO SCH (11:45)
[2023-01-18] MEDS: ENOXAPARIN 40 MG/0.4 ML SQ SCH (11:45)
[2023-01-18] MEDS: ONDANSETRON 4 MG/2 ML VIAL IV PRN ×3 (11:45→23:00)
--- NOTE | 2023-01-18 11:47 | RAD REPORT ---
EXAM DESCRIPTION: RAD - Chest Single View - 01/18/2023 6:30 am CLINICAL HISTORY: The patient is 67 years old and is Male; DYSPNEA TECHNIQUE: Single view of the chest. COMPARISON: No relevant prior studies available. FINDINGS: Lungs: No pulmonary vascular congestion or consolidation. Pleural space: Unremarkable. No pneumothorax. Heart: Unremarkable. No cardiomegaly. Mediastinum: Unremarkable. Bones/joints: No acute fracture visualized. Upper abdomen: No free air in the visualized upper abdomen. IMPRESSION: No acute cardiopulmonary process identified. Electronically signed by: Radha Orozco MD 01/18/2023 6:48 AM CDT Due to temporary technical issues with the PACS/Fluency reporting system, reports are being signed by the in house radiologists without review as a courtesy to insure prompt reporting. The interpreting radiologist is fully responsible for the content of the report.
[2023-01-18 12:18] LABS: Magnesium 2.2 mg/dL (1.6-2.4); Phosphorus 1.6 mg/dL (2.5-4.9); Thyroid Stimulating Hormone 0.932 uIU/mL (0.358-3.740)
[2023-01-18 12:41] VITALS: BMI 37.2
--- NOTE | 2023-01-18 12:43 | RAD REPORT ---
EXAM DESCRIPTION: CT - Abdomen Wo Contrast - 01/18/2023 11:16 am CLINICAL HISTORY: Epigastric pain COMPARISON: Chest For Pe Angio dated 01/18/2023 TECHNIQUE: Thin cut axial CT imaging of the abdomen was performed without IV contrast. Multiplanar r eformats were generated and reviewed. All CT scans are performed using dose optimization technique as appropriate and may include automated exposure control or mA/KV adjustment according to patient size. FINDINGS: No suspicious findings in the lung bases. The liver, spleen, and pancreas show no suspicious findings. Gallbladder and biliary tree are also wi thout suspicious finding. 1.6 cm fat density left adrenal lesion, likely a benign adenoma. Symmetric renal contour, without suspicious parenchymal findings within limits of noncontrast techniq ue. Contrast excreted in the urinary tract from a recent CT chest angiogram limits evaluation. No lawson dence of radiopaque calculi or hydroureteronephrosis. No dilated bowel loops or bowel wall thickening. Colonic diverticulosis. No free air, free fluid or inflammatory stranding. No hernia, mass or bulky lymphadenopathy. No suspicious bony findings. IMPRESSION: No acute intra-abdominal process. Left adrenal benign appearing adenoma. Colonic dive rticulosis.
--- NOTE | 2023-01-18 12:58 | RAD REPORT ---
EXAM DESCRIPTION: USCarotid Artery Bilateral01/18/2023 11:18 am CLINICAL HISTORY: syncope COMPARISON: None FINDINGS: The velocity of the right internal carotid artery equals Add cm/sec. The right ICA/CCA rat io 0.7 The velocity of the left internal carotid artery equals 105 cm/sec. The left ICA/CCA ratio 0.8 Moderate calcified plaque right external carotid artery. Mild plaque within the carotid bulb and inte rnal carotid arteries The vertebral arteries demonstrate antegrade flow IMPRESSION: Mild plaque within the internal carotid arteries without evidence of a hemodynamically s ignificant stenosis NASCET criteria used. Mild 0-49% stenosis Moderate 50-69% stenosis Severe 70-99% stenosis
--- NOTE | 2023-01-18 17:21 | EKG ---
Test Date: 2023-01-18 Test Time: 06:18:59 [employer] Salesperson: MEASUREMENT RESULTS: Intervals: Rate: 65 MI: 214 QRSD: 78 QT: 390 QTc: 405 [place]: P: 55 MI: 214 QRS: 58 T: 51 INTERPRETIVE STATEMENTS: Sinus rhythm with 1st degree AV block Otherwise normal ECG Compared to ECG 06/01/2022 12:45:45 First degree AV block now present Myocardial infarct finding no longer present Electronically Signed On 01-18-23 17:20:14 CDT by Freddy Dean
[2023-01-18] MEDS ORDERED: MELATONIN 5 MG TABLET PO PRN (22:50)
[2023-01-19 04:21] LABS: Absolute Lymphocytes (CBC) 0.7 K/uL (0.7-4.9); Lymphocytes % 10.5 % (15.3-44.8); MCV 83.6 fL (80-100); MPV 8.2 fL (7.6-11.3)
[2023-01-19 04:25] VITALS: O2SAT 94
[2023-01-19 04:39] LABS: Potassium 4.7 mEq/L (3.5-5.1)
[2023-01-19] MEDS: PANTOPRAZOLE 40 MG INJ IVP SCH (08:24)
[2023-01-19] MEDS: ENOXAPARIN 40 MG/0.4 ML SQ SCH (08:25)
[2023-01-19] MEDS: ASPIRIN 81 MG CHEWABLE TABLET PO SCH (08:25)
[2023-01-19] MEDS ORDERED: POTASSIUM PHOS IN 0.9 % NACL 15 MMOL/250 ML BAG IV ONE (09:00)
--- NOTE | 2023-01-19 12:34 | ECHO ---
HEIGHT: 5 ft 4 in WEIGHT: 217 lb 0 oz DATE OF STUDY: 01/19/[address]: Hilario Cleaning 2-DIMENSIONAL: YES M.MODE: YES DOPPLER: YES COLOR FLOW: YES TDS: YES PORTABLE: YES DEFINITY: BUBBLE STUDY: DIAGNOSIS: NEAR SYNCOPE CARDIAC HISTORY: CATHERIZATION: YES SURGERY: NO PROSTHETIC VALVE: NO PACEMAKER: NO MEASUREMENTS (cm) DIASTOLIC (NORMALS) SYSTOLIC (NORMALS) IVSd 1.0 (0.6-1.2) LA Diam 2.5 (1.9-4.0) LVEF 56% LVIDd 4.8 (3.5-5.7) LVIDs 3.4 (2.0-3.5) %FS 30% LVPWd 1.0 (0.6-1.2) Ao Diam 2.8 (2.0-3.7) 2 DIMENSIONAL ASSESSMENT: RIGHT ATRIUM: NORMAL LEFT ATRIUM: NORMAL RIGHT VENTRICLE: NORMAL LEFT VENTRICLE: NORMAL TRICUSPID VALVE: MILD TRICUSPID REGURGITATION MITRAL VALVE: NORMAL PULMONIC VALVE: MILD PULMONIC INSUFFICIENCY AORTIC VALVE: NORMAL PERICARDIAL EFFUSION: NONE AORTIC ROOT: NORMAL LEFT VENTRICULAR WALL MOTION: NORMAL DOPPLER/COLOR FLOW: SEE BELOW COMMENTS: 1. NORMAL LEFT VENTRICULAR EJECTION FRACTION 55-60% 2. NORMAL WALL MOTION 3. MODERATE DIASTOLIC DYSFUNCTION 4. MILD TRICUSPID REGURGITATION 5. MILD PULMONIC INSUFFICIENCY TECHNOLOGIST: ONOFRE NIETO
[2023-01-19 13:01] LABS: Specific Gravity 1.027 (1.005-1.030); Urine Bacteria None Seen /HPF (<20); Urine Bilirubin NEGATIVE (Negative); Urine Blood Negative (Negative); Urine Clarity Clear (Clear); Urine Color Light-Yellow (Yellow); Urine Glucose NEGATIVE (Negative); Urine Mucus Slight /HPF (None Seen); Urine Protein TRACE (Negative); Urine RBC <5 /HPF (None Seen); Urine Urobilinogen Normal (Normal); Urine pH 5.5 (5.0-7.0)
[2023-01-19 13:25] VITALS: BP 130/60; TEMP 98.4
== END 2023-01-19 14:24 | disposition home or self-care (01) ==
LOC: ER 06:05 → ERHOLD 10:07 → 2ND 14:49
PROVIDERS: ADMIT Hospitalist; ATTEND Hospitalist
DX: R55 Syncope and collapse (principal); R06.02 Shortness of breath; R10.9 Unspecified abdominal pain; E78.5 Hyperlipidemia, unspecified; I10 Essential (primary) hypertension; K21.9 Gastro-esophageal reflux disease without esophagitis; I25.10 Atherosclerotic heart disease of native coronary artery without angina pectoris; I25.2 Old myocardial infarction; M19.90 Unspecified osteoarthritis, unspecified site; N18.31 Chronic kidney disease, stage 3a; E66.9 Obesity, unspecified; Z68.37 Body mass index [BMI] 37.0-37.9, adult; Z95.5 Presence of coronary angioplasty implant and graft; Z20.822 Contact with and (suspected) exposure to COVID-19
CPT/HCPCS: 93005; 93306; 85025 ×2; 81001; 80048 ×2; 36415; 83735 ×2; 84100; 85610; 80076; 84443; 84484; 84439; 83880 ×2; 0240U; 74150; 71275; 71045; 93880; 96374; 99285; Q9967; C9113 ×2; J1650 ×2; J2405 ×4; G0378

== ENCOUNTER 2025-02-19 02:31 | Observation (INO) | payer OTHER ==
[2025-02-19] MEDS ORDERED: NA CHLORIDE 0.9% 1,000 ML ONE ×2 (03:09→07:59)
[2025-02-19] MEDS ORDERED: ONDANSETRON 4 MG/2 ML VIAL ONE (03:09)
[2025-02-19 03:34] LABS: Absolute Eosinophils 0.2 K/uL (0-0.5); Absolute Lymphocytes (CBC) 1.1 K/uL (0.7-4.9); Absolute Monocytes 0.9 K/uL (0.1-1.3); Absolute Neutrophil 7.5 K/uL (1.8-8.0); Basophils % 0.5 % (0-1.3); Eosinophils % 1.6 % (0-4.4); Hematocrit 42.9 % (39.6-49.0); Hemoglobin 14.9 g/dL (13.6-17.9); Lymphocytes % 11.7 % (15.3-44.8); MCHC 34.6 g/dL (32.0-36.0); MCV 83.8 fL (80-100); MPV 8.3 fL (7.6-11.3); Monocytes % 9.6 % (3.3-12.3); Neutrophils % 76.6 % (41.7-73.7); Nucleated Red Blood Cells % 0.1 % (0-0); Platelets 235 thou/uL (152-406); RBC Red Blood Cell Count 5.12 M/uL (4.33-5.43); Red Cell Distribution Width 14.3 % (12.1-15.2)
[2025-02-19 03:40] LABS: Albumin 3.5 g/dL (3.4-5.0); Anion Gap 11.2 mEq/L (5.0-15.0); Bilirubin Total 0.7 mg/dL (0.2-1.0); Globulin 3.6 g/dL (2.3-3.5); Potassium 4.2 mEq/L (3.5-5.1); Protein, Total 7.1 g/dL (6.4-8.2)
[2025-02-19] MEDS ORDERED: MORPHINE 4 MG/ML SYR ONE (04:29)
[2025-02-19 04:50] LABS: Specific Gravity 1.018 (1.005-1.030); Urine Bilirubin NEGATIVE (Negative); Urine Blood Negative (Negative); Urine Clarity Clear (Clear); Urine Color Yellow (Yellow); Urine Glucose NEGATIVE (Negative); Urine Ketones NEGATIVE (Negative); Urine Microscopic Reflex YN NO UMIC; Urine Nitrite NEGATIVE (Negative); Urine Protein NEGATIVE (Negative); Urine Urobilinogen Normal (Normal); Urine pH 6.5 (5.0-7.0)
[2025-02-19] MEDS ORDERED: PIPERACIL/TAZO 3.375 GM VIAL IV ONE (05:24)
[2025-02-19] MEDS ORDERED: NA CHLORIDE 0.9% 100 ML ONE (05:24)
--- NOTE | 2025-02-19 05:56 | RAD REPORT ---
ADDENDUM #1 Critical findings were discussed with and acknowledged by Dr. Marlene Friedman MD on 02/19/2025 5:56 AM C DT. Electronically signed by: Addi Reilly MD 02/19/2025 06:11 AM T End of Addendum CLINICAL HISTORY: Abdominal pain. COMPARISON: CT Abdomen Pelvis 07/12/2023. TECHNIQUE: CT ABDOMEN PELVIS WITH IV CONTRAST on 02/19/2025 3:00 AM CDT This exam was performed according to our departmental dose-optimization program, which includes autom ated exposure control, adjustment of the mA and/or kV according to patient size and/or use of iterative reconstruction technique. FINDINGS: Lower lungs are clear. Abdomen: The liver is normal in appearance. There is no biliary dilatation. Gallbladder is normal in appearance. The pancreas and spleen are normal in appearance. Adrenal myelolipoma measures 1.5 cm. Left adrenal gland and both kidneys are normal. The abdominal aorta is moderately calcified without aneurysm. There is no free air. There is no retro peritoneal adenopathy. Pelvis: There is extensive distal colonic diverticulosis. There is segmental thickening of the mid to distal sigmoid colon with surrounding inflammation. Urinary bladder is unremarkable. There is no free fluid. Appendix is normal. Skeleton: There are no acute osseous findings. No suspicious bony lesions. IMPRESSION: Presumed diverticulitis of the mid to distal sigmoid colon. Recommend follow-up colonoscopy to exclud e an underlying mass following resolution of acute symptoms. Electronically signed by: Addi Reilly MD 02/19/2025 05:28 AM CDT Due to temporary technical issues with the PACS/Proxama reporting system, reports are being jeison d by the in-house radiologist without review as a courtesy to ensure prompt reporting the interpreting radiologist is fully responsible for the content of the report. Transcribed Date/Time: 02/19/2025 6:28 AM
--- NOTE | 2025-02-19 06:10 | ER ---
Nurse's Notes [facility] Name: Ramez Boothe Age: 69 yrs Sex: Male : 1955 Arrival Date: 02/19/2025 Time: 02:31 Bed 18 Private MD: Diagnosis: Right lower quadrant pain;Diverticulitis of intestine, part unspecified, without perforation or abscess without bleeding Presentation: 02/19 02:56 Chief complaint: Patient states: lower right abdominal pain that started yesterday. cp4 Also reports low grade fever. Coronavirus screen: Client denies travel out of the [place] in the last 14 days. At this time, the client does not indicate any symptoms associated with coronavirus-19. Ebola Screen: Patient negative for fever greater than or equal to 101.5 degrees Fahrenheit, and additional compatible Ebola Virus Disease symptoms Patient denies exposure to infectious person. Patient denies travel to an Ebola-affected area in the 21 days before illness onset. No symptoms or risks identified at this time. Initial Sepsis Screen: Does the patient meet any 2 criteria? No. Patient's initial sepsis screen is negative. Does the patient have a suspected source of infection? No. Patient's initial sepsis screen is negative. Risk Assessment: Do you want to hurt yourself or someone else? Patient reports no desire to harm self or others. Onset of symptoms was February 18, 2025. 02:56 Method Of Arrival: Ambulatory 4 02:56 Acuity: MARGARET 3 cp4 Triage Assessment: 03:00 General: Appears in no apparent distress. uncomfortable, Behavior is calm, cooperative, cp4 appropriate for age. Pain: Complains of pain in right lower quadrant Pain does not radiate. Pain currently is 5 out of 10 on a pain scale. EENT: No signs and/or symptoms were reported regarding the EENT system. Neuro: Level of Consciousness is awake, alert, obeys commands, Oriented to person, place, time, situation. Cardiovascular: Patient's skin is warm and dry. Respiratory: Airway is patent Respiratory effort is even, unlabored. GI: No signs and/or symptoms were reported involving the gastrointestinal system. : No signs and/or symptoms were reported regarding the genitourinary system. Derm: No signs and/or symptoms reported regarding the dermatologic system. Musculoskeletal: No signs and/or symptoms reported regarding the musculoskeletal system. Historical: - Allergies: 03:00 No Known Allergies; cp4 - PMHx: 03:00 cardiac stent; Hyperlipidemia; Hypertension; Myocardial infarction; cp4 - PSHx: 03:00 back; cp4 - Immunization history:: Adult Immunizations up to date. - Infectious Disease History:: Denies. - Social history:: Smoking status: Patient denies any tobacco usage or history of. Screenin:03 [facility] ED Fall Risk Assessment (Adult) History of falling in the last 3 months, cp4 including since admission No falls in past 3 months (0 pts) Confusion or Disorientation No (0 pts) Intoxicated or Sedated No (0 pts) Impaired Gait No (0 pts) Mobility Assist Device Used No (0 pt) Altered Elimination No (0 pt) Score/Fall Risk Level 0 - 2 = Low Risk Oriented to surroundings, Maintained a safe environment, Assessed \T\ reinforced patient's understanding of fall precautions, Hourly rounding (assess needs \T\ fall precautionary measures) done. Abuse screen: Denies threats or abuse. Denies injuries from another. Nutritional screening: No deficits noted. Tuberculosis screening: No symptoms or risk factors identified. Assessment: 03:04 Reassessment: No changes from previously documented assessment. cp4 03:41 Reassessment: No changes from previously documented assessment. Patient and/or family vc1 updated on plan of care and expected duration. Pain level reassessed. 05:05 Reassessment: No changes from previously documented assessment. Patient and/or family vc1 updated on plan of care and expected duration. Pain level reassessed. Patient is alert, oriented x 3, equal unlabored respirations, skin warm/dry/pink. Vital Signs: 02:56 BP 131 / 76; Pulse 69; Resp 18; Temp 99.3; Pulse Ox 95% ; Weight 83.91 kg; Height 5 ft. cp4 4 in. ; Pain 5/10; 03:41 BP 127 / 72; Pulse 62; Resp 18; Pulse Ox 97% ; vc1 05:05 BP 117 / 69; Pulse 58; Resp 18; Pulse Ox 96% ; vc1 02:56 Body Mass Index 31.75 (83.91 kg, 162.56 cm) cp4 02:56 Pain Scale: Adult cp4 ED Course: 02:32 Patient arrived in ED. jj6 02:51 Idalia, Marlene, MD is Attending Physician. gb1 02:56 Negra Henderson is Primary Nurse. cp4 03:00 Triage completed. cp4 03:00 Arm band placed on right wrist. Patient placed in waiting room. cp4 03:03 Bed in low position. Call light in reach. Side rails up X 1. cp4 03:03 No provider procedures requiring assistance completed. Inserted saline lock: 20 gauge cp4 in right antecubital area, using aseptic technique. Blood collected. Flushed with 10 mL NS. 03:10 CBC with Diff Sent. mm11 03:10 CMP Sent. mm11 03:10 Lipase Sent. mm11 04:04 CT Abd/Pelvis - IV Contrast Only In Process Unspecified. EDMS 06:09 Harjinder Contreras MD is Hospitalizing Provider. gb1 17:20 Patient admitted, IV remains in place. kc6 Administered Medications: 03:14 Drug: Ondansetron IVP 4 mg IVP once; over 2 minutes Route: IVP; Site: right forearm; cp4 04:35 Follow up: Response: No adverse reaction vc1 03:14 Drug: NS 0.9% IV 1000 ml IV at 1 bolus Per protocol; to be given as a bolus over 60 cp4 minutes Route: IV; Rate: 1 bolus; Site: right forearm; 04:35 Follow up: IV Status: Completed infusion vc1 04:34 Drug: morphine IVP or IV 4 mg IVP once over 4 mins Route: IVP; Infused Over: 4 mins; vc1 Site: right forearm; 05:29 Follow up: Response: No adverse reaction cp4 05:29 Drug: Piperacillin-Tazobactam IVPB 3.375 grams IVPB once over 60 mins; (mix in NS 100 cp4 mL) Route: IVPB; Infused Over: 60 mins; Site: right forearm; Medication: 03:03 VIS not applicable for this client. cp4 Outcome: 06:09 Decision to Hospitalize by Provider. gb1 17:20 Admitted to Med/surg accompanied by tech, family with patient, via wheelchair, room kc6 222, with chart, 17:20 Condition: good 17:20 Instructed on the need for admit, 17:20 Patient left the ED. kc6 Signatures: Dispatcher [employer] EDMS Samantha Hayes [email or web address] Shruthi Drake RN RN vc1 Maribeth Josue RN RN kc6 Marlene Friedman MD MD gb1 Negra Henderson cp4 wil tracey mm11 Corrections: (The following items were deleted from the chart) 03:01 03:00 PMHx: Hyperlipidemia; cp4 cp4 03:14 03:14 NS 0.9% IV 1000 ml IV at 1 bolus in right antecubital cp4 cp4
--- NOTE | 2025-02-19 06:10 | EDPHYS ---
Physician Documentation [facility] Name: Ramez Boothe Age: 69 yrs Sex: Male : 1955 Arrival Date: 02/19/2025 Time: 02:31 Bed 18 Private MD: ED Physician Marlene Friedman HPI: 02/19 03:21 This 69 yrs old Male presents to ER via Ambulatory with complaints of Pelvic gb1 Pain. 03:21 69-year-old male with 2 days of right pelvic pain and nausea. He states that gb1 it hurts when he walks and when he was driving here today the bumps were really bothersome as well. He is not vomiting and he states that he had a low-grade fever couple days ago as well. He denies any diarrhea.. Historical: - Allergies: 03:00 No Known Allergies; cp4 - PMHx: 03:00 cardiac stent; Hyperlipidemia; Hypertension; Myocardial infarction; cp4 - PSHx: 03:00 back; cp4 - Immunization history:: Adult Immunizations up to date. - Infectious Disease History:: Denies. - Social history:: Smoking status: Patient denies any tobacco usage or history of. Exam: 03:21 Constitutional: This is a well developed, well nourished patient who is awake, alert, gb1 and in no acute distress. Head/Face: Normocephalic, atraumatic. Eyes: Pupils equal round and reactive to light, extra-ocular motions intact. Lids and lashes normal. Conjunctiva and sclera are non-icteric and not injected. Cornea within normal limits. Periorbital areas with no swelling, redness, or edema. Chest/axilla: Normal chest wall appearance and motion. Nontender with no deformity. No lesions are appreciated. Cardiovascular: Regular rate and rhythm with a normal S1 and S2. No gallops, murmurs, or rubs. Normal PMI, no JVD. No pulse deficits. Respiratory: Lungs have equal breath sounds bilaterally, clear to auscultation and percussion. No rales, rhonchi or wheezes noted. No increased work of breathing, no retractions or nasal flaring. Abdomen/GI: Right sided-tenderness, with normal bowel sounds. No distension or tympany. Positive guarding or rebound. Skin: Warm, dry with normal turgor. Normal color with no rashes, no lesions, and no evidence of cellulitis. MS/ Extremity: Pulses equal, no cyanosis. Neurovascular intact. Full, normal range of motion. Neuro: Awake and alert, GCS 15, oriented to person, place, time, and situation. Cranial nerves II-XII grossly intact. Motor strength 5/5 in all extremities. Sensory grossly intact. Cerebellar exam normal. Normal gait. Vital Signs: 02:56 BP 131 / 76; Pulse 69; Resp 18; Temp 99.3; Pulse Ox 95% ; Weight 83.91 kg; Height 5 ft. cp4 4 in. ; Pain 5/10; 03:41 BP 127 / 72; Pulse 62; Resp 18; Pulse Ox 97% ; vc1 05:05 BP 117 / 69; Pulse 58; Resp 18; Pulse Ox 96% ; vc1 02:56 Body Mass Index 31.75 (83.91 kg, 162.56 cm) cp4 02:56 Pain Scale: Adult cp4 MDM: 02:53 Medical Screening Exam initiated gb1 06:06 Data reviewed: vital signs, nurses notes, radiologic studies, CT scan. ED course: gb1 69-year-old male with right lower quadrant pain, low-grade temperature and pain that requires IV narcotics here with a right-sided acute diverticulitis no perforation. No abscess per the reading radiologist. The imaging appears to me to be concerning for acute appendicitis with abscess however the CT scan is formally read by the radiologist as acute diverticulitis. The patient is requiring IV fluids and pain medication and at this time elevated to the hospital with a general surgery consultation. I discussed with Dr. Leung. I did administer IV Zosyn. Admit the patient to Dr. Contreras's service.. 02/19 03:00 Order name: CBC with Diff; Complete Time: 03:38 gb1 02/19 03:00 Order name: CMP; Complete Time: 04:26 gb02/19 03:00 Order name: Lipase; Complete Time: 04:26 gb02/19 03:00 Order name: Urinalysis w/ reflexes; Complete Time: 04:59 gb1 02/19 07:11 Order name: CBC with Automated Diff EDMS 02/19 07:11 Order name: CBC with Automated Diff EDMS 02/19 07:11 Order name: CBC with Automated Diff EDMS 02/19 07:11 Order name: CBC with Automated Diff EDMS 02/19 07:11 Order name: CBC with Automated Diff EDMS 02/19 07:11 Order name: Comprehensive Metabolic Panel EDMS 02/19 07:11 Order name: Comprehensive Metabolic Panel EDMS 02/19 07:11 Order name: Comprehensive Metabolic Panel EDMS 02/19 07:11 Order name: Comprehensive Metabolic Panel EDMS 02/19 07:11 Order name: Comprehensive Metabolic Panel EDMS 02/19 08:20 Order name: Glucose, Ancillary Testing EDMS 02/19 03:00 Order name: CT Abd/Pelvis - IV Contrast Only gb1 02/19 03:01 Order name: IV Saline Lock; Complete Time: 03:10 gb1 02/19 03:01 Order name: Labs collected and sent; Complete Time: 03:10 gb1 Administered Medications: 03:14 Drug: Ondansetron IVP 4 mg IVP once; over 2 minutes Route: IVP; Site: right forearm; cp4 04:35 Follow up: Response: No adverse reaction vc1 03:14 Drug: NS 0.9% IV 1000 ml IV at 1 bolus Per protocol; to be given as a bolus over 60 cp4 minutes Route: IV; Rate: 1 bolus; Site: right forearm; 04:35 Follow up: IV Status: Completed infusion vc1 04:34 Drug: morphine IVP or IV 4 mg IVP once over 4 mins Route: IVP; Infused Over: 4 mins; vc1 Site: right forearm; 05:29 Follow up: Response: No adverse reaction cp4 05:29 Drug: Piperacillin-Tazobactam IVPB 3.375 grams IVPB once over 60 mins; (mix in NS 100 cp4 mL) Route: IVPB; Infused Over: 60 mins; Site: right forearm; Disposition Summary: 02/19/25 06:09 Hospitalization Ordered Notes: Hospitalization Status: Observation gb1 Provider: Harjinder Contreras Condition: Stable gb1 Problem: an acute exacerbation gb1 Symptoms: have worsened gb1 Bed/Room Type: Standard gb1 Location: Telemetry/MedSurg (observation)(02/19/25 15:39) bd Room Assignment: 222(02/19/25 15:39) bd Diagnosis - Right lower quadrant pain gb1 - Diverticulitis of intestine, part unspecified, without perforation or abscess gb1 without bleeding Forms: - Medication Reconciliation Form gb1 - SBAR form gb1 - Leadership Thank You Letter gb1 Signatures: Dispatcher [employer] EDMS Daylin Moore Irene, RN RN iw Shruthi Drake RN RN vc1 Marlene Friedman MD MD gb1 Negra Henderson cp4 Corrections: (The following items were deleted from the chart) 03:01 03:01 CBC+H.LAB.BRZ ordered. EDMS EDMS 03:01 03:01 COMPREHENSIVE METABOLIC PANEL+C.LAB.BRZ ordered. EDMS EDMS 03:01 03:01 LIPASE+C.LAB.BRZ ordered. EDMS EDMS 03:01 03:01 Urinalysis+U.LAB.BRZ ordered. EDMS EDMS 03:01 03:01 Abdomen Pelvis W Con+CT.RAD.BRZ ordered. EDMS EDMS 03:01 03:00 PMHx: Hyperlipidemia; cp4 cp4 08:18 06:09 Telemetry/MedSurg (observation) gb1 iw 08:18 06:09 gb1 iw 15:39 08:18 [facility] ER HOLD iw bd 15:39 08:18 ERHOLD- iw bd
[2025-02-19] MEDS ORDERED: ONDANSETRON 4 MG/2 ML VIAL IV PRN (07:06)
[2025-02-19] MEDS ORDERED: HYDROCODONE/APAP 5/325 MG TAB PO PRN (07:06)
[2025-02-19] MEDS: MORPHINE 2 MG/ML SYR IV PRN (07:54)
[2025-02-19] MEDS: NA CHLORIDE 0.9% 1,000 ML IV SCH (08:00)
[2025-02-19 08:17] VITALS: BMI 31.6
[2025-02-19] MEDS: METRONIDAZOLE 500mg IVPB 500 MG/100 ML BAG IV SCH (09:00)
[2025-02-19] MEDS: ENOXAPARIN 40 MG/0.4 ML SQ SCH (09:00)
[2025-02-19] MEDS: FAMOTIDINE 20 MG/2 ML VIAL IV SCH (09:00)
[2025-02-19] MEDS: CIPROFLOXACIN 400mg IV 400 MG/200 ML BAG IV SCH (09:00)
[2025-02-19] MEDS ORDERED: FAMOTIDINE 20 MG/2 ML VIAL IV ONE (09:13)
--- NOTE | 2025-02-19 09:44 | P.HP ---
Certification for Inpatient Patient admitted to: Observation With expected LOS: <2 Midnights Patient will require the following post-hospital care: None Practitioner: I am a practitioner with admitting privileges, knowledge of patient current condition, hospital course, and medical plan of care. Services: Services provided to patient in accordance with Admission requirements found in Title 42 Section 412.3 of the Code of Federal Regulations Patient History Date of Service: 02/19/25 Reason for admission: Diverticulitis History of Present Illness: 69-year-old male with history of CAD, hypertension, hyperlipidemia presents the Emergency Department with chief complaint of 2 days of abdominal pain. He was evaluated in the emergency department his labs are significant for a white blood cell of 9.8 creatinine 1.49 GFR 51 glucose 120 UA not concerning for urinary tract infection CT of the abdomen pelvis was performed with IV contrast which revealed presumed diverticulitis of the mid to distal sigmoid colon. Recommend follow-up colonoscopy to exclude underlying mass following resolution of acute symptoms. Patient was started on IV antibiotics, will be admitted for further evaluation and management. Allergies No Known Allergies Allergy (Verified 06/02/22 08:21) Home Medications: Atorvastatin Calcium [Lipitor] 80 mg PO BEDTIME 05/11/22 Clopidogrel Bisulfate [Plavix] 75 mg PO DAILY 05/11/22 Famotidine [Pepcid] 40 mg PO BEDTIME 05/11/22 Metoprolol Tartrate [Lopressor] 50 mg PO BID 05/11/22 lisinopriL [Zestril] 10 mg PO DAILY 05/11/22 Dexlansoprazole [Kapidex] 60 mg PO DAILY 05/16/22 Testost Cypionate [Depo-Testosterone*] 200 mg IM SEECOM 06/01/22 tadalafiL [Cialis] 5 mg PO DAILY 06/01/22 - Past Medical/Surgical History Has patient received pneumonia vaccine in the past: Yes Diabetic: No -: HTN -: CAD -: Carpal tunnel bilaterally -: Diverticulitis -: Obesity -: Sleep apnea -: Angina -: Osteoarthritis -: Cardiac stents x2 -: left shoulder "bone spur removed" -: Back sx x2 - Social History Smoking Status: Never smoker Alcohol use: No Caffeine use: Yes Place of Residence: Home Review of Systems 10-point ROS is otherwise unremarkable Gastrointestinal: Abdominal Pain Physical Examination - Vital Signs Respirations: 18 - Physical Exam General: Alert, In no apparent distress, Oriented x3 HEENT: Atraumatic, PERRLA Neck: Supple, 2+ carotid pulse no bruit, No LAD Respiratory: Clear to auscultation bilaterally, Normal air movement Cardiovascular: Regular rate/rhythm, Normal S1 S2 Gastrointestinal: Normal bowel sounds, Tenderness (Mild generalized abdominal tenderness) Musculoskeletal: No contractures Integumentary: No rashes Neurological: Normal gait, Normal speech, Normal strength at 5/5 x4 extr, Normal affect - Studies Laboratory Data (last 24 hrs) 02/19/25 02/19/25 03:07 03:07 WBC 9.80 Hgb 14.9 Hct 42.9 Plt Count 235 Sodium 136 Potassium 4.2 BUN 13 Creatinine 1.49 H Glucose 120 H Total Bilirubin 0.7 AST 16 ALT 24 Alkaline Phosphatase 67 Lipase 26 Assessment and Plan - Plan Assessment: Acute diverticulitis Hypertension Hyperlipidemia History of CAD with stents x 2 Plan: Acute diverticulitis Continue antibiotic Cipro/Flagyl As needed pain medications and antiemetics Clear liquid diet is now advance slowly/as tolerated Discussed need for colonoscopy 6 to 8 weeks after resolution Hypertension Hyperlipidemia History of CAD with stents x 2 Continue home medications when verified DVT PPX: Lovenox Code status: Full code Discharge Plan: Home Plan to discharge in: 24 Hours - Advance Directives Does patient have a Living Will: No Does patient have a Durable POA for Healthcare: No - Code Status/Comfort Care Code Status Assessed: Yes (Full code) Critical Care: No Time Spent Managing Pts Care (In Minutes): 65
[2025-02-19 18:13] VITALS: O2SAT 96
[2025-02-19] MEDS: DOCUSATE NA/SENNA CONC 1 TAB PO PRN (21:33)
[2025-02-20] MEDS: ACETAMINOPHEN 325 MG TABLET PO PRN (00:49)
[2025-02-20 07:40] LABS: Absolute Eosinophils 0.1 K/uL (0-0.5); Absolute Lymphocytes (CBC) 0.8 K/uL (0.7-4.9); Absolute Monocytes 0.8 K/uL (0.1-1.3); Basophils % 0.5 % (0-1.3); Eosinophils % 1.1 % (0-4.4); Hematocrit 37.8 % (39.6-49.0); Hemoglobin 13.1 g/dL (13.6-17.9); Lymphocytes % 9.6 % (15.3-44.8); MCH 29.1 pg (27.0-35.0); MCHC 34.7 g/dL (32.0-36.0); MCV 83.9 fL (80-100); MPV 7.9 fL (7.6-11.3); Monocytes % 9.1 % (3.3-12.3); Neutrophils % 79.7 % (41.7-73.7); Platelets 222 thou/uL (152-406); Red Cell Distribution Width 14.3 % (12.1-15.2)
[2025-02-20 07:58] LABS: ALT/SGPT 18 U/L (16-61); AST/SGOT < 10 U/L (15-37); Albumin 2.9 g/dL (3.4-5.0); Albumin/Globulin Ratio 0.9 (1.1-1.8); Alkaline Phosphatase 48 U/L (45-117); Anion Gap 7.9 mEq/L (5.0-15.0); BUN Blood Urea Nitrogen 10 mg/dL (7-18); Bicarbonate 25 mEq/L (21-32); Bilirubin Total 0.7 mg/dL (0.2-1.0); Globulin 3.2 g/dL (2.3-3.5); Glomerular Filtration Rate 56 ml/min (=/>90); Glucose Level 114 mg/dL (74-106); Potassium 3.9 mEq/L (3.5-5.1); Protein, Total 6.1 g/dL (6.4-8.2); Sodium Level 139 mEq/L (136-145)
[2025-02-20] MEDS: METOPROLOL TAR 50 MG TAB PO SCH (09:09)
[2025-02-20] MEDS: CLOPIDOGREL 75 MG TABLET PO SCH (09:09)
[2025-02-20 12:32] VITALS: BP 115/63; TEMP 97.8
--- NOTE | 2025-02-20 15:19 | P.DS ---
Admission Date: 02/19/25 Discharge Date: 02/20/25 Disposition: ROUTINE DISCHARGE Discharge Condition: GOOD Reason for Admission: Diverticulitis Brief History of Present Illness: Diagnosis Acute diverticulitis Hypertension Hyperlipidemia History of CAD with stents x 2 HPI 02/19/2025 69-year-old male with history of CAD, hypertension, hyperlipidemia presents the Emergency Department with chief complaint of 2 days of abdominal pain. He was evaluated in the emergency department his labs are significant for a white blood cell of 9.8 creatinine 1.49 GFR 51 glucose 120 UA not concerning for urinary tract infection CT of the abdomen pelvis was performed with IV contrast which revealed presumed diverticulitis of the mid to distal sigmoid colon. Recommend follow-up colonoscopy to exclude underlying mass following resolution of acute symptoms. Patient was started on IV antibiotics, will be admitted for further evaluation and management. Hospital Course: Ramez was admitted and treated for Acute diverticulitis. CT abd/pelvis reports "presumed diverticulitis of the mid to distal sigmoid colon." He has tolerated ciprofloxacin and Flagyl IV and diet advancement. Discussed need for colonoscopy 6 to 8 weeks after resolution. He reports feeling better, abdominal pain resolving, having a bowel movement this morning, and ambulating independently. On 02/20/2025, Ramez was seen on morning rounds hemodynamically stable for discharge home with family support and follow-up with Dr. Guido for colonoscopy 6 weeks from resolution of symptoms. Continue Cipro, Flagyl, and docusate for 7 days. Physical Exam General: Alert and Oriented x3, afebrile, NAD HEENT: Atraumatic, PERRLA Neck: Supple, 2+ carotid pulse no bruit Respiratory: Clear BBS, nonlabored breathing, on RA Cardiovascular: RRR, Normal S1 S2 Gastrointestinal: Normal bowel sounds, Tenderness (Mild generalized abdominal tenderness) Musculoskeletal: No contractures, 2 + peripheral pulses Integumentary: No rashes Neurological: Normal gait, Normal speech, Normal strength at 5/5 x4 extr, Normal affect Vital Signs/Physical Exam: Temp Pulse Resp BP Pulse Ox 97.8 F 61 16 115/63 95 02/20/25 12:00 02/20/25 12:00 02/20/25 12:00 02/20/25 12:00 02/20/25 12:00 Laboratory Data at Discharge: WBC 8.80 thou/uL (4.3-10.9) 02/20/25 07:18 Hgb 13.1 g/dL (13.6-17.9) L 02/20/25 07:18 Hct 37.8 % (39.6-49.0) L 02/20/25 07:18 Plt Count 222 thou/uL (152-406) 02/20/25 07:18 Sodium 139 mEq/L (136-145) 02/20/25 07:18 Potassium 3.9 mEq/L (3.5-5.1) 02/20/25 07:18 BUN 10 mg/dL (7-18) 02/20/25 07:18 Creatinine 1.38 mg/dL (0.70-1.30) H 02/20/25 07:18 Glucose 114 mg/dL (74-106) H 02/20/25 07:18 Total Bilirubin 0.7 mg/dL (0.2-1.0) 02/20/25 07:18 AST < 10 U/L (15-37) L 02/20/25 07:18 ALT 18 U/L (16-61) 02/20/25 07:18 Alkaline Phosphatase 48 U/L (45-117) 02/20/25 07:18 Lipase 26 U/L (13-75) 02/19/25 03:07 Home Medications: Atorvastatin Calcium [Lipitor] 80 mg PO BEDTIME 05/11/22 Clopidogrel Bisulfate [Plavix*] 75 mg PO DAILY 05/11/22 Famotidine [Pepcid*] 40 mg PO BEDTIME 05/11/22 Metoprolol Tartrate [Lopressor*] 50 mg PO BID 05/11/22 lisinopriL [Zestril] 10 mg PO DAILY 05/11/22 Dexlansoprazole [Kapidex] 60 mg PO DAILY 05/16/22 Testost Cypionate [Depo-Testosterone*] 200 mg IM EVERY 7TH DAY 06/01/22 tadalafiL [Cialis] 5 mg PO DAILY 06/01/22 Ciprofloxacin HCl [Cipro 500 MG Tablet] 500 mg PO BID 7 Days #14 tab 02/20/25 metroNIDAZOLE [Flagyl] 500 mg PO Q8H 7 Days #21 tab 02/20/25 New Medications: Ciprofloxacin HCl [Cipro 500 MG Tablet] 500 mg PO BID 7 Days #14 tab metroNIDAZOLE [Flagyl] 500 mg PO Q8H 7 Days #21 tab Physician Discharge Instructions: 1. Please call and schedule a follow-up appointment with your PCP in 3-5 days - Please follow-up with your PCP for medication refills/adjustments 2. Please call and schedule a follow-up appointment with Dr. Guido in 6 weeks for colonoscopy 3. Continue soft GI diet 4. No activity restrictions 5. Return to the ED if symptoms worsen New medications Ciprofloxacin 500 mg Flagyl 500 mg Diet: [place] Activity: Ad ac Followup: OOT,OOT [Primary Care Provider] - Isidro Nye MD [ASSOCIATE-ACTIVE - CAN ADMIT] -
[2025-02-20] MEDS ORDERED: FAMOTIDINE 20 MG TAB PO SCH (21:00)
[2025-02-20] MEDS ORDERED: ATORVASTATIN 80 MG TAB PO SCH (21:00)
== END 2025-02-20 15:44 | disposition home or self-care (01) ==
LOC: ER 02:31 → ERHOLD 07:05 → 2ND 17:06
PROVIDERS: ADMIT Hospitalist; ATTEND Hospitalist
DX: K57.92 Diverticulitis of intestine, part unspecified, without perforation or abscess without bleeding (principal); I25.2 Old myocardial infarction; R10.31 Right lower quadrant pain; I25.10 Atherosclerotic heart disease of native coronary artery without angina pectoris; I10 Essential (primary) hypertension; E78.5 Hyperlipidemia, unspecified; Z95.5 Presence of coronary angioplasty implant and graft
CPT/HCPCS: 36415; 74177; 80053; 81003; 82947; 83690; 85025; 96361; 96374; 96375; 99285; G0378; J0744; J1650; J2270; J2405; J2543; J7030; Q9967